=== PATIENT | female | born 1950 | race Caucasian/White ===

== ENCOUNTER 2023-10-10 23:39 | Emergency (ER) | payer MEDICARE, SELFPAY ==
[2023-10-10 23:55] VITALS: BP 187/100; PULSE 72; RESP 20; TEMP 36.3; O2SAT 99; BMI 29.6
[2023-10-11] VITALS (23 sets, daily range): BP systolic 152–195; BP diastolic 78–100; PULSE 60–72; O2SAT 94–98
[2023-10-11 00:30] LABS: Troponin, Point-of-Care* 0.01 ng/ml (0.01-0.04)
--- NOTE | 2023-10-11 00:58 | ED.CHESTPAIN ---
HPI - Chest Pain General Time Seen by Provider: 00:58 Date Seen: 10/11/23 Chief Complaint: Hypertension Stated Complaint: High Blood pressure Time Seen by Provider: 10/11/23 00:58 Source: patient, RN notes reviewed and old records reviewed Mode of arrival: ambulatory Limitations: no limitations History of Present Illness HPI narrative: Madeleine is a very pleasant well-spoken 73-year-old female with history of hypertension, 4 way CABG 2014, stent placement in September of 2022 who comes to the emergency room for evaluation of elevated blood pressure and not feeling quite right. Patient notes that she awoke this morning and describes an odd or strange feeling. Her blood pressure was elevated at 179. She denies any pain or discomfort throughout the day but did have some nausea early this morning. She is a very active person and had been very busy over this past week as her granddaughter from [place]. She states that going up stairs is very common for her. She notes that today because she felt ?odd or strange she was trying to take it a little bit easy. However, she still had to 10 to her pets and did climb multiple stairs today. She had no chest pain or shortness of breath when climbing stairs. The activity did not make her feel any worse. Throughout the day her blood pressure dropped and was 120 systolic. For blood pressures she currently takes amlodipine. She is also on long-acting Imdur. She notes that her doctor had told her that she could discontinue this medication when she wanted to but she has not done so at this time. Patient last met with Cardiology in December 2022. Preceding that she did have an echocardiogram which she states was normal. This evening patient felt of strange pressure in the left side of her neck that she describes as stiffness. This was intermittent and not pulsating in nature. She notes that it did happen here when she arrived but had has now since dissipated. She also experienced approximately 5 minutes of sweating on her forehead this evening. Oddly this was also occurrence on Monday night October 09. [place] to [place]. She notes that her angina type symptoms in the past have been shortness of breath and weakness without chest pain. Madeleine does not smoke, drink coffee or smoke. Her is present and he is very loving and supportive. Patient has no problems at this time and denies headache, visual changes, recent cough cold congestion, abdominal pain, nausea vomiting. She does note that she feels somewhat constipated as she has not had a lot of water today. Denies dysuria hematuria or any swelling in her ankles. Related Data Home Medications Medication Instructions Recorded Confirmed amlodipine 5 mg tablet mg PO 10/11/23 clonazepam 0.5 mg tablet mg PO 10/11/23 clopidogrel 75 mg tablet mg PO 10/11/23 ezetimibe 10 mg tablet mg PO 10/11/23 gabapentin 300 mg capsule mg PO 10/11/23 isosorbide mononitrate 30 mg mg PO 10/11/23 tablet,extended release 24 hr nitroglycerin 0.4 mg sublingual mg sublingual 10/11/23 tablet rosuvastatin 40 mg tablet mg PO 10/11/23 Allergies Allergy/AdvReac Type Severity Reaction Status Date / Time lisinopril AdvReac Verified 10/11/23 00:01 Review of Systems Status of ROS Reports: 10 or more systems reviewed and unremarkable except as noted in History and below Const Denies: fever or chills Eyes Denies: change in vision or blurry vision ENMT Reports: neck pain (Described as a pressure on the left.); Denies: difficulty swallowing, ear pain or nasal congestion Cardio Denies: chest pain, palpitations, edema, swelling of feet/ankles or shortness of breath with exertion Resp Denies: shortness of breath, cough or wheezing GI Denies: abdominal pain, heartburn or difficulty swallowing Reports: urinary frequency; Denies: painful urination or urinary urgency Musculo Reports: neck pain (Described as a pressure on the left.); Denies: back pain or extremity pain Neuro Denies: headache or confusion Allergy/Immuno Denies: wheezing [facility] Social History Smoking Status: Never smoker Do you use any of these nicotine containing products: None How often do you have a drink containing alcohol: never How often do you have six or more drinks on one occasion: Never AUDIT-C Alcohol total score: 0 Non-prescribed substance use: denies use Exam Narrative Exam Narrative: Alert and oriented. Very well-spoken woman in no acute distress. EOM is full. Face symmetrical. Speech is normal and articulate. Nontoxic in appearance Heart with a regular rate and rhythm. I do not auscultate additional heart sounds. Lungs show crackles in the bases left greater than right. Abdomen is soft nontender. Lower extremities with no evidence of edema. Moving all extremities without difficulty. Const Vital Signs, click to edit/add: Vital Signs - 24 hr 10/10/23 23:55 Temperature 97.3 F L Pulse Rate [Right Pulse Oximeter] 72 Respiratory Rate 20 Blood Pressure [Right Upper Arm] 187/100 H Pulse Oximetry 99 Oxygen Delivery Method Room Air Documenting provider has reviewed patient's vital signs: yes Course Course ED Course: Differential diagnosis includes but is not limited to acute coronary event, hypertension, GERD, electrolyte imbalance, congestive heart failure, early viral infection. At this time will order proBNP based on history of hypertension as well as lung findings, comprehensive panel, magnesium, CBC, troponin, EKG. I have told Madeleine that we will do 2 sets of cardiac enzymes and EKGs while she is here. Chest x-ray pending and patient will be placed on alarm security or surveillance monitor. Reevaluation(s) Reevaluation #1: Using [employer], I am able to see that patient has a history of restrictive lung disease. However lungs were clear on September of 2023 with primary MD. I can see that there is an EKG in the system but I am unable to view it at this time. Vital Signs Vital signs: Initial Vital Signs Temperature 97.3 F L 10/10/23 23:55 Temperature Source Temporal Artery Scan 10/10/23 23:55 Pulse Rate 72 10/10/23 23:55 Pulse Rhythm Regular 10/10/23 23:55 Respiratory Rate 20 10/10/23 23:55 Blood Pressure 187/100 H 10/10/23 23:55 Blood Pressure Mean 129 H 10/10/23 23:55 Blood Pressure Position Sitting 10/10/23 23:55 Pulse Oximetry 99 10/10/23 23:55 Oxygen Delivery Method Room Air 10/10/23 23:55 Vital Signs Temperature 97.3 F L 10/10/23 23:55 Pulse Rate 72 10/10/23 23:55 Respiratory Rate 20 10/10/23 23:55 Blood Pressure 187/100 H 10/10/23 23:55 Pulse Oximetry 99 10/10/23 23:55 Oxygen Delivery Method Room Air 10/10/23 23:55 Temperature 97.3 F L 10/10/23 23:55 Pulse Rate 72 10/10/23 23:55 Respiratory Rate 20 10/10/23 23:55 Blood Pressure 187/100 H 10/10/23 23:55 Pulse Oximetry 99 10/10/23 23:55 Oxygen Delivery Method Room Air 10/10/23 23:55 Medications Administered Medications: Generic Name Dose Route Start Last Admin Trade Name Freq PRN Reason Stop Dose Admin Furosemide 40 mg 10/11/23 02:17 10/11/23 02:39 Furosemide 10 Mg/Ml Inj IVP 10/11/23 02:18 40 mg ONCE ONE Administration MDM - Chest Pain MDM Narrative Medical decision making narrative: 1. New onset congestive heart failure- mild. Patient has new crackles in lung bases compared to documentation of previous exams. She has enlarged cardiac silhouette on chest x-ray. Her proBNP is elevated at 550 but this is in the indeterminate range. However, given reassuring laboratory values, new crackles I do think that this is likely some fluid retention. Patient has a slightly elevated TSH. I do not know if this is playing into any fluid retention. There is no evidence of lower extremity edema. Patient has been treated with Lasix 40 mg IV. 2. Hypertension -blood pressure has come down nicely most recently 150 systolic without any interventions. Patient has not had any other symptoms with the exception of intermittent left neck pressure and diaphoresis this evening. No such symptoms in the ED at this time. 3. Altered physical feeling-patient describes some mild nausea and feeling ?odd? this morning. Nausea resolved. Throughout the day quite active and this did not make her feel worse. No reports of neurological issues or symptoms of end-organ damage. D-dimer is negative and patient denies any pain radiating to back or numbness or tingling of the legs. Pulses symmetrical. 4. History of coronary artery disease-CABG for way 2014 followed by stent placement in September of 2023. Initial troponin negative. EKG reassuring although I was unable to compare to previous. Second EKG and troponin currently pending. 5. Disposition-plan at this time is to allow patient at least 2 episodes of urinating. Hopefully this will bring blood pressure down. Patient will then be discharged home with instructions to follow-up with primary MD or Cardiology for scheduling of echocardiogram. Seek medical attention for recurrence of symptoms. Addendum: Patient has now urinated 3 times. She has no further symptoms. Her blood pressure continues to be elevated at 160 systolic. For will use Lasix 20 mg daily for her. Recommend discontinuing if she gets lightheaded or blood pressure goes below 100 systolic. At this time patient feels safe going home and will be discharged. Medical Records Data Attestation: I reviewed the patient's medical records. Medical records narrative: EMS care Lab Data Attestation: I reviewed the patient's lab results. Labs: Lab Results 10/11/23 10/11/23 10/11/23 Range/Units 00:15 00:20 01:20 WBC 7.00 (4.50-11.00) K/uL RBC 5.67 H (4.00-5.20) m/uL Hgb 14.7 (12.0-16.0) gm/dL Hct 47.4 (33.0-51.0) % MCV 84 (80-100) fL MCH 26 (26-34) pg MCHC 31 L (32-36) gm/dL RDW Coeff of Viviana 13.8 (11.5-15.5) % Plt Count 178 (140-440) K/uL Neut % (Auto) 69.7 (42.0-72.0) % Lymph % (Auto) 22.3 (20-44) % Appling % (Auto) 6.7 (0.0-11.0) % Eos % (Auto) 0.7 (0.0-7.0) % Baso % (Auto) 0.3 (0.0-3.0) % Neut # (Auto) 4.88 (1.7-7.0) K/uL Lymph # (Auto) 1.56 (0.90-2.90) K/uL Appling # (Auto) 0.50 (0.00-0.90) K/UL Eos # (Auto) 0.05 (0.00-0.50) K/uL Baso # (Auto) 0.02 (0.00-0.30) K/uL Abs Immat Gran (auto) 0.02 (0.00-0.30) K/uL Imm/Tot Granulo (auto) 0.3 % D-Dimer Quant (PE/DVT) < 0.27 (0.00-0.50) ug/ml Sodium 142 (135-149) mmol/L Potassium 3.9 (3.6-5.1) mmol/L Chloride 108 (96-114) mmol/L Carbon Dioxide 22 (20-32) mmol/L Anion Gap 12 (7-15) mEq/L BUN 26 (7-30) mg/dL Creatinine 0.9 (0.5-1.5) mg/dL Estimated Creat Clear 40.21 Estimated GFR 67 ml/min Glucose 127 H (60-115) mg/dL Calcium 10.0 (8.4-10.6) mg/dL Magnesium 2.4 (1.5-2.6) mg/dL Total Bilirubin 0.5 (0.1-1.5) mg/dL AST 34 (12-35) U/L ALT 24 (4-35) U/L Alkaline Phosphatase 66 (40-150) U/L NT-Pro-B Natriuret Pep 526 pg/mL Total Protein 7.7 (6.0-8.3) g/dL Albumin 4.9 (3.3-5.0) g/dL 25-OH Vitamin D Total 47 (30-80) ng/mL TSH 7.650 H (0.270-4.200) uIU/mL Free T4 0.93 (0.70-1.85) ng/dL SARS-CoV-2 (PCR) Negative SARS-CoV-2 (Negative) Influenza Type A (PCR) Negative PCR FLU A (Negative) Influenza Type B (PCR) Negative PCR FLU B (Negative) RSV (PCR) Negative PCR RSV (Negative) Lab Acknowledgement POC Troponin I 0.01 (0.01-0.04) ng/ml 10/11/23 10/11/23 Range/Units 01:56 02:16 WBC (4.50-11.00) K/uL RBC (4.00-5.20) m/uL Hgb (12.0-16.0) gm/dL Hct (33.0-51.0) % MCV (80-100) fL MCH (26-34) pg MCHC (32-36) gm/dL RDW Coeff of Viviana (11.5-15.5) % Plt Count (140-440) K/uL Neut % (Auto) (42.0-72.0) % Lymph % (Auto) (20-44) % Appling % (Auto) (0.0-11.0) % Eos % (Auto) (0.0-7.0) % Baso % (Auto) (0.0-3.0) % Neut # (Auto) (1.7-7.0) K/uL Lymph # (Auto) (0.90-2.90) K/uL App[place] # (Auto) (0.00-0.90) K/UL Eos # (Auto) (0.00-0.50) K/uL Baso # (Auto) (0.00-0.30) K/uL Abs Immat Gran (auto) (0.00-0.30) K/uL Imm/Tot Granulo (auto) % D-Dimer Quant (PE/DVT) (0.00-0.50) ug/ml Sodium (135-149) mmol/L Potassium (3.6-5.1) mmol/L Chloride (96-114) mmol/L Carbon Dioxide (20-32) mmol/L Anion Gap (7-15) mEq/L BUN (7-30) mg/dL Creatinine (0.5-1.5) mg/dL Estimated Creat Clear Estimated GFR ml/min Glucose (60-115) mg/dL Calcium (8.4-10.6) mg/dL Magnesium (1.5-2.6) mg/dL Total Bilirubin (0.1-1.5) mg/dL AST (12-35) U/L ALT (4-35) U/L Alkaline Phosphatase (40-150) U/L NT-Pro-B Natriuret Pep pg/mL Total Protein (6.0-8.3) g/dL Albumin (3.3-5.0) g/dL 25-OH Vitamin D Total (30-80) ng/mL TSH (0.270-4.200) uIU/mL Free T4 (0.70-1.85) ng/dL SARS-CoV-2 (PCR) (Negative) Influenza Type A (PCR) (Negative) Influenza Type B (PCR) (Negative) RSV (PCR) (Negative) Lab Acknowledgement Test Added POC Troponin I 0.01 (0.01-0.04) ng/ml Imaging Data Chest x-ray: Attestation: I have reviewed the pertinent imaging results. My impression: Increased lung markings. No obvious infiltrates. Radiologist's impression: Cardiovascular and mediastinum: Mildly enlarged cardiac silhouette, possibly accentuated by portable technique. Tortuous aorta. Median sternotomy. Lungs and pleural spaces: Lungs are clear. No sign of infiltrate or mass. No sign of pleural effusion. No pneumothorax. Bones and soft tissues: No significant findings. IMPRESSION: 1. Mildly enlarged cardiac silhouette, possibly accentuated by portable technique. 2. No consolidation. ECG Data Attestation: I personally reviewed and interpreted this ECG as follows: ECG interpretation date: 10/11/23 Interpretation: EKG by my read shows sinus rhythm at a rate of 74. Evidence of a previous inferior infarct with Q-waves in 3 and AVF. I do not note any acute ST or T-wave changes. Second EKG by my read shows sinus rhythm at a rate of 67. Compared to previous no new changes. Discharge Plan Discharge Clinical Impression: New onset of congestive heart failure, Hypertension Patient Disposition: Home, Self-Care Additional Instructions: 1. New onset congestive heart failure-I believe this to be very mild and this will need to be confirmed with further testing. I suggest following up with Cardiology or your primary MD for a repeat echocardiogram. Your primary MD may wish to continue on an additional blood pressure medication. Tonight we used a medicine called Lasix or furosemide which is a diuretic. 2. Elevated TSH-this information should be be shared with your primary MD. your TSH was 7.65. Normal range is 0.270-4.2 3. We did not find any evidence of a heart attack. Your electrolytes are normal. Please return to the emergency room should you experience ongoing problems, the onset of new symptoms. Prescriptions: No Action isosorbide mononitrate 30 mg tablet extended release 24 hr PO clonazepam 0.5 mg tablet PO clopidogrel 75 mg tablet PO amlodipine 5 mg tablet PO nitroglycerin 0.4 mg tablet, sublingual sublingual gabapentin 300 mg capsule PO ezetimibe 10 mg tablet PO rosuvastatin 40 mg tablet PO Follow Up/Referrals: Provider,Not a Local [Primary Care Provider] - Stand Alone Forms: [employer] Info Instructions
--- NOTE | 2023-10-11 01:17 | CRLHL7_ITS ---
For Patients: As a result of the Century Cures Act, medical imaging exams and procedure reports are released immediately into your electronic medical record. You may view this report before your referring provider. If you have questions, please contact your health care provider. INDICATION: Hypertension. TECHNIQUE: Chest 1 view. COMPARISON: None. FINDINGS: Cardiovascular and mediastinum: Mildly enlarged cardiac silhouette, possibly accentuated by portable technique. Tortuous aorta. Median sternotomy. Lungs and pleural spaces: Lungs are clear. No sign of infiltrate or mass. No sign of pleural effusion. No pneumothorax. Bones and soft tissues: No significant findings. IMPRESSION: 1. Mildly enlarged cardiac silhouette, possibly accentuated by portable technique. 2. No consolidation. Dictated by Quintin Whyte MD @ 10/11/2023 2:02:21 AM (Electronically Signed)
--- OUTSIDE RECORDS SUMMARY | 2023-10-11 01:31 | XMS_ITS | Referral Summary ---
Author Name Unknown Organization [facility] Address [address] [place] [address]. [place] [address] Care Team Providers Care Logistics And Planning Manager Name Role Phone Marcelina Devine MD Primary Care Provider + Johnnie Forbes MD Unavailable Johnnie Forbes MD Unavailable Encounters Date Type Department Care Team Description 08/21/[address] [facility] [address] [place] [address] Aleah Hall LPN 08/03/2023 Refill [facility] [address] [facility] [address] [place] [address] Johnine Forebs MD Refill Request (clopidogrel) from Last 3 Months Allergies Active Allergy Reactions Criticality Noted Date Comments Lisinopril Cough 10/06/2016 Medications Medication Sig Dispensed Refills Start Date End Date Status clonazePAM (KLONOPIN) 0.5 MG tablet Take 0.5 mg by mouth nightly as needed for anxiety 0 Active gabapentin (NEURONTIN) 300 MG capsule Take 300 mg by mouth daily as needed 0 Active albuterol (PROAIR HFA/PROVENTIL HFA/VENTOLIN HFA) 108 (90 Base) MCG/ACT inhaler Inhale 2 puffs into the lungs every 6 hours 0 Active rosuvastatin (CRESTOR) 40 MG tablet Take 1 tablet (40 mg) by mouth daily 90 tablet 3 09/13/2022 Active amLODIPine (NORVASC) 5 MG tablet Take 1 tablet (5 mg) by mouth daily 90 tablet 3 09/13/2022 Active ezetimibe (ZETIA) 10 MG tablet Take 1 tablet (10 mg) by mouth daily 90 tablet 3 05/05/2023 Active isosorbide mononitrate (IMDUR) 30 MG 24 hr tablet Take 0.5 tablets (15 mg) by mouth daily 45 tablet 3 05/05/2023 Active nitroGLYcerin (NITROSTAT) 0.[address] 1 tablet (0.4 mg) under the tongue every 5 minutes as needed for chest pain For chest pain place 1 tablet under the tongue every 5 minutes for 3 doses. If symptoms persist 5 minutes after 1st dose call 911. 3 tablet 3 05/05/2023 Active clopidogrel (PLAVIX) 75 MG tabletIndications:CAD (coronary artery disease) Take 1 tablet (75 mg) by mouth daily 90 tablet 2 08/03/2023 Active Active Problems Problem Noted Date Diagnosed Date Benign essential hypertension 09/13/2022 Unstable angina 08/26/2022 ACP (advance care planning) 07/20/2017 Cough 03/27/2015 Transient hyperglycemia post procedure 5 Anemia due to blood loss, acute 03/19/2015 Fluid overload 03/19/2015 S/P CABG x 4 03/10/2015 Syncope 01/21/2015 STEMI (ST elevation myocardial infarction) 11/28 Overview: inferior [place] Nov 2014 Coronary artery disease invo [place]ving [place] coronary artery of [place] heart without angina pectoris 11/28/2014 Overview: 03/10/2015 - CABG x4 with RUANO to LAD, rev SVG in Y configurations to 1st and 2nd diagonal and rev SVG to PDA 11/2014 - aspiration thrombectomy and THAI to RCA Ischemic cardiomyopathy 11/28/2014 NSVT (nonsustained ventricular tachycardia) Overview: 11-28-14 admit, runs of NSVT Dyslipidemia Social History Tobacco Use Types Packs/Day Years Used Date Smoking Tobacco: Never Smokeless Tobacco: Never Tobacco Cessation:Counseling Given: Not Answered Alcohol Use Standard Drinks/Week Comments No 0 (1 standard drink = 0.6 oz pur e alcohol) PHQ-2 Answer Date Recorded PHQ-2 Score 0 05/05/2023 Adolescent Education Answer Date Record ed Getting School Help Needed Not on file 07/07 Sex and Gender Information Value Date Recorded Sex Assigned at Not on file Gender Identity Not on file Sexual Orientation Not on file Last Filed Vital Signs Vital Sign Reading Time Taken Comments Blood Pressure 154/80 05/05/2023 1:30 PM CDT Pulse 69 05/05/2023 1:30 PM CDT Temperature 36.3 ??C (97.3 ??F) 08/30/2022 8:18 AM CS T Respiratory Rate 16 08/30/2022 8:18 AM [employer] Oxygen Saturation 98% 05/05/2023 1:30 PM CDT Inhaled Oxygen Concentration - - Weight 70.3 kg (155 lb) 05/05/2023 1:30 PM CDT Height 160 cm (5' 3) 05/05/2023 1:30 PM CDT Body Mass Index 27.46 05/05/2023 1:30 PM CDT Plan of Treatment Upcoming Encounters Date Type Department Care Team (Late st Contact Info) Description 11/14/2023 10:15 AM [employer] Lab [facility] [id number] [place] [address] [address] [place] [phone] 11/15/2023 10:30 AM [employer] Office Visit [address] [place] [id number] Johnnie Forbes MD [address] [place], [place] [id number] Medical Devices Implanted Type Area Medical Instructor Device Identifier Shelf Expiration Date Model / Serial / Lot Stent Resolute Jabari De 2.7fr [id number] Ronyx [id number] - [id number] Implanted:Qty: 1 on 08/29/2022 at [facility] Stent Drug Eluting (THAI) [employer] 05/24/2024 [id number] / / [id number] Imp Clip Horiz Multi Sm Yellow Implanted:Qty: 2 on 03/10/2015 by Yoshi Jimenez MD at [facility] [employer] [id number] / / Advance Directives For more information, please contact: [phone] Latest Code Status on File Code Status Date Activated Date Inactivated Comments Full Code 08/27/2022 5:41 PM 08/30/2022 4:13 PM All basic and advanced life-sustaining interventions are performed as appropriate Question Answer Comments Code status determined by: Discussion with patient/ legal decision maker Code Status History Code Status Date Activated Date Inactivated Comments Full Code 08/23/2022 7:46 PM 08/24/2022 11:16 PM Al l basic and advanced life-sustaining interventions are performed as appropriate Question Answer Comments Code status determined by: Discussion with patient/ legal decision maker Full Code 03/16/2015 8:13 AM 09/22/2018 8:09 PM Full Code 03/10/2015 3:45 PM 03/16/2015 8:13 AM Full Code 03/02/2015 8:54 PM 03/10/2015 3:45 PM Care Teams Logistics And Planning Manager Relationship Specialty Start Date End Date Marcelina Devine MD [facility] [address] [place] [address] PCP - General Family Practice 12/05/14 Johnnie Forbes MD [address] [place] [address] Cardiovascular Disease 03/02/23 Johnnie Forbes MD [address] [place] [address] Assigned Heart and Vascular Provider 05/06/23
--- OUTSIDE RECORDS SUMMARY | 2023-10-11 01:31 | XMS_ITS | Clinical Summary ---
Author Name Unknown Organization [place] Address [address] [place] [address]. [place] [address] Care Team Providers Care Strickler Attendant Name Role Phone Marcelina Devine MD Primary Care Provider + Johnnie Forbes MD Unavailable [phone] Johnnie Forbes MD Unavailable [phone] Allergies Active Allergy Reactions Criticality Noted Date [...] (ST elevation myocardial infarction) 11/28 Overview: inferior SC Nov 2014 Coronary artery disease invo [place]ving [place] coronary artery of [place] heart without angina pectoris 11/28/2014 Overview: 03/10/2015 - CABG x4 with RUANO to LAD, rev SVG in Y configurations to 1st and 2nd diagonal and rev SVG to PDA 11/2014 - aspiration thrombectomy and THAI to RCA Ischemic cardiomyopathy 11/28/2014 NSVT (nonsustained ventricular tachycardia) Overview: 11-28-14 admit, runs of NSVT Dyslipidemia Encounters Date Type Department Care Team Description 08/21/2023 MyC Medical Advice [facility] [address] [place] [address] [address] [place] [address] Aleah Hall LPN 08/03/2023 Refill [facility] [address] [facility] [address] [place] [address] Johnnie Forbes MD Refill Request (clopidogrel) from Last 3 Months Family History Medical History Relation Comments Cancer Brother from cancer , supposedly from agent [place] Heart Disease Mother possibly had hea rt problems? Relation Status Comments Brother Mother Social History Tobacco Use Types Packs/Day Years [...] T Respiratory Rate 16 08/30/2022 8:18 AM BIT SHARPENER OPERATOR Oxygen Saturation 98% 05/05/2023 1:30 PM CDT Inhaled Oxygen Concentration - - Weight 70.3 kg (155 lb) 05/05/2023 1:30 PM CDT Height 160 cm (5' 3) 05/05/2023 1:30 PM CDT Body Mass Index 27.46 05/05/2023 1:30 PM CDT Plan of Treatment Upcoming Encounters Date Type Department Care Team (Late st Contact Info) Description 11/14/2023 10:15 AM BIT SHARPENER OPERATOR Lab [address] [place] [phone] 11/15/2023 10:30 AM BIT SHARPENER OPERATOR Office Visit [address] [place] [address] Johnnie Forbes MD [address] [place] [address] Health Maintenance Due Date Last Done Comments ANNUAL REVIEW OF HM ORDERS 1948 CT COLONOGRAPHY 1948 DEXA 1948 FLEX SIG 1948 sDNA (Cologuard) 1948 COVID-19 Vaccine (#1) 1948 Pneumococcal Vaccine: 65+ Years (1 of 2 - PCV) 1954 COLONOSCOPY 1958 HEPATITIS C SCREENING 1966 DTAP/TDAP/TD IMMUNIZATION (1 - Tdap) 1973 ZOSTER IMMUNIZATION (1 of 2) 1998 RSV VACCINE ( & 60+) (1 - 1-dose 60+ series) 2008 FALL RISK ASSESSMENT 2013 COLORECTAL CANCER SCREENING 12/17/2015 FIT 12/17/2015 12/16/2014 MAMMO SCREENING 06/19/2021 06/19/2019 ADVANCE CARE PLANNING 07/20/2022 07/20/2017 MEDICARE ANNUAL WELLNESS VISIT 03/03/2023 03/03/2022, 08/13/2020 INFLUENZA VACCINE (#1) 2023 PHQ-2 (once per calendar year) 2023 05/05/2023 LIPID 06/19/2028 06/19/2023, 08/0 11/2022, 01/21/2015, Additional history exists HPV IMMUNIZATION Aged Out No longer e ligible based on patient's age to complete this topic IPV IMMUNIZATION Aged Out No longer e ligible based on patient's age to complete this topic MENINGITIS IMMUNIZATION Aged Out No l onger eligible based on patient's age to complete this topic RSV MONOCLONAL ANTIBODY Aged Out No l onger eligible based on patient's age to complete this topic Medical Devices Implanted Type Area Counselor Manager Device Identifier Shelf Expiration Date Model / Serial / Lot Stent Resolute Jabari De 2.7fr [id number] Ronyx [id number] - [id number] Implanted:Qty: 1 on 08/29/2022 at [facility] Stent Drug Eluting (THAI) [employer] 05/24/2024 [id number] / / [id number] Imp Clip Horiz Multi Sm Yellow Implanted:Qty: 2 on 03/10/2015 by Yoshi Jimenez MD at [facility] [employer] [id number] / / Advance Directives For more information, please contact: [phone] Latest Code Status on File Code Status [...] 8:54 PM 03/10/2015 3:45 PM Care Teams Strickler Attendant Relationship Specialty Start Date End Date Marcelina Devine MD [facility] [id number] [place] [address] PCP - General Family Practice 12/05/14 Johnnie Forbes MD [address] [place] [address] Cardiovascular Disease 03/02/23 Johnnie Forbes MD [address] [place] [address] Assigned Heart and Vascular Provider 05/06/23
--- OUTSIDE RECORDS SUMMARY | 2023-10-11 01:32 | XMS_ITS | Encounter Summary ---
Author Name Unknown Organization [place] Address [address] [place] [address]. [place] [address] Care Team Providers Care Community Health Outreach Worker Name Role Phone Marcelina Devine MD Primary Care Provider + Johnnie Forbes MD Unavailable [phone] Johnnie Forbes MD Unavailable Reason for Visit * Reason Onset Date Comments Refill Request 08/03/2023 clopidogrel Encounter Details Date Type Department Care Team (Late st Contact Info) Description 08/03/2023 Refill [facility] Heart [address] [place] [address] Johnnie Forbes MD [address] [facility] [address] [place] [address] Refill Request (clopidogrel) Social History Tobacco Use Types Packs/Day Years Used Date Smoking Tobacco: Never Smokeless Tobacco: Never Alcohol Use Standard Drinks/Week Comments No 0 (1 standard drink = 0.6 oz pur e alcohol) PHQ-2 Answer Date Recorded PHQ-2 Score 0 05/05/2023 Adolescent Education Answer Date Record ed Getting School Help Needed Not on file 07/07 Sex and Gender Information Value Date Recorded Sex Assigned at Not on file Gender Identity Not on file Sexual Orientation Not on file documented as of this encounter Miscellaneous Notes * Telephone Encounter - Zuly Vasquez, RN - 08/03/2023 3:20 PM CDT [facility] Cardiology Refill Guideline reviewed. Medication meets criteria for refill. documented in this encounter Plan of Treatment Upcoming Encounters Date Type Department Care Team (Late st Contact Info) Description 11/14/2023 10:15 AM SECURITY TECH Lab [facility] [address] [facility] [address] [place] [address] 11/15/2023 10:30 AM SECURITY TECH Office Visit [facility] [address] [place] [address] [address] [place] [address] Johnnie Forbes MD [address] [place] [id number] documented as of this encounter Visit Diagnoses Diagnosis CAD (coronary artery disease)- Primary Coronary atherosclerosis of unspecified type of vessel, deering or graft documented in this encounter Care Teams Community Health Outreach Worker Relationship Specialty Start Date End Date Marcelina Devine MD [address] [address] PCP - General Family Practice 12/05/14 Johnnie Forbes MD [address] [place] [id number] Cardiovascular Disease 03/02/23 Johnnie Forbes MD [address] [place] [id number] Assigned Heart and Vascular Provider 05/06/23 documented as of this encounter
--- OUTSIDE RECORDS SUMMARY | 2023-10-11 01:32 | XMS_ITS | Encounter Summary ---
Author Name Unknown Organization [place] Address [address] [place] [address]. [place] [address] Care Team Providers Care Tong Setter Name Role Phone Marcelina Devine MD Primary Care Provider + Johnnie Forbes MD Unavailable [phone] Johnnie Forbes MD Unavailable [phone] Reason for Visit * Reason Onset Date Comments Medication Question 07/07/2023 Please advis e - Patient called asking if she needs to hold her Plavix for a Dental appointment next week 07-20-23, - Removal of a old crown, filling, and having a new crown placed . Encounter Details Date Type Department Care Team (Late st Contact Info) Description 07/07/2023 Telephone [facility] Heart [address] [address] Linda Coreas, rn dialysis Question (Please advise - /Patient called asking if she needs to hold her Plavix for a Dental appointment next week 07-20-23, - Removal of a old crown, filling, and having a new crown placed . ////) Social History Tobacco Use Types Packs/Day Years [...] on file Sexual Orientation Not on file COVID-19 Exposure Response Date Recorded In the last 10 days, have yo u been in contact with someone who was confirmed or suspected to have Coronavirus/COVID-19? No / Unsure 06/19/2023 10:45 AM CDT documented as of this encounter Miscellaneous Notes * Telephone Encounter - Sheeba Jimenez RN - 07/10/2023 8:34 AM CDT Spoke with patient to review Dr. Forbes's reply. She is not aware of any other procedures that would be bloody so will follow the plan to continue plavix. * Telephone Encounter - Linda Coreas RN - 07/07/2023 4:[address] Forbes message reply 07-07-23 She should not need to hold. She can double check with her dentist. But I think it should not be a problem * Telephone Encounter - Linda Coreas RN - 07/07/2023 1:52 PM CDT Patient called asking if she needs to hold her Plavix for a Dental appointment next week 07-20-23, - Removal of a old crown, filling, and having a new crown placed . Patient will also call dentist for plavix recommendations Hold - for how long or not hold? Last heart cath 09-05-22 One vessel obstructive coronary artery disease 75% stenosis of SVG to rPDA graft IVUS guided PCI of SVG to rPDA graft with DESx1 (Resolute Jabari 4.00x38 mm) Emblolic protection with use of Filter wire EZ Hemostasis of RRA with TR band Plan Follow bedrest per protocol Continued medical management and lifestyle modifications for cardiovascular risk factor optimizations. Arterial sheath removed from radial artery with TR band placement. Cardiac rehabilitation. Return to the primary inpatient team for further evaluation and managmenet Last Dr. Forbes OV 05-05-23 Assessment and plan Madeleine appears to be doing well from a cardiac standpoint without clinical evidence of ischemia. At this time I told her she can try weaning her Imdur decreasing to 15 mg daily for2 weeks. After which she can try eliminating it altogether. She is more than 6 months out and with her increased ecchymoses I will discontinue aspirin and continue Plavix only. I will plan on seeing her back in about 6 months. We talked about the fact that I will probably continue with lifelong clopidogrel as opposed to aspirin given the Mcgregor meta-analysis. I will also recheck her echocardiogram at that time. documented in this encounter Plan of Treatment Upcoming Encounters Date Type Department Care Team (Late st Contact Info) Description 11/14/2023 10:15 AM DEPUTY FIRE MARSHAL Lab [facility] [address] [place] [address] [address] [place] [address] 11/15/2023 10:30 AM DEPUTY FIRE MARSHAL Office Visit [facility] [address] [place] [address] [address] [place] [address] Johnnie Forbes MD [address] [place] [id number] documented as of this encounter Visit Diagnoses Not on filedocumented in this encounter Care Teams Tong Setter Relationship Specialty Start Date End Date Marcelina Devine MD [facility] [address] [place] [address] PCP - General Family Practice 12/05/14 Johnnie Forbes MD [address] [place] [id number] Cardiovascular Disease 03/02/23 Johnnie Forbes MD [address] [place] [id number] Assigned Heart and Vascular Provider 05/06/23 documented as of this encounter
--- OUTSIDE RECORDS SUMMARY | 2023-10-11 01:32 | XMS_ITS | Encounter Summary ---
Author Name Unknown Organization [place] Address [address] [place] [address]. [place] [address] Care Team Providers Care Securities Dealer Name Role Phone Marcelina Devine MD Primary Care Provider + Dianne Coello APRN WASTEWATER PLANT OPERATOR Unavailable [phone] Johnnie Forbes MD Unavailable [phone] Johnnie Forbes MD Unavailable [phone] Encounter Details Date Type Department Care Team (Late st Contact Info) Description 08/14/2021 Documentation Only INTERFACED REPORT Unknown, Provider Social History Tobacco Use Types Packs/Day Years Used Date Smoking Tobacco: Never Smokeless Tobacco: Never Alcohol Use Standard Drinks/Week Comments No 0 (1 standard drink = 0.6 oz pur e alcohol) Sex and Gender Information Value Date Recorded Sex Assigned at Not on file Gender Identity Not on file Sexual Orientation Not on file COVID-19 Exposure Response Date Recorded In the last month, have you been in contact with someone who was confirmed or suspected to have Coronavirus / COVID-19? No / Unsure 08/14/2021 2:27 PM TRANSIT SURVEY WORKER documented as of this encounter Plan of Treatment Upcoming Encounters Date Type Department Care Team (Late Contact Info) Description 11/14/2023 10:15 AM TRANSIT SURVEY WORKER Lab [address] [place] [address] 11/15/2023 10:30 AM TRANSIT SURVEY WORKER Office Visit [address] [place] [address] Johnnie Forbes MD [address] [place] [id number] documented as of this encounter Visit Diagnoses Not on filedocumented in this encounter Additional Health Concerns Infection Onset Date Last Indicated Resolved Time COVID-19 08/26/2022 08/26/2022 09/16/2022 11:3 9 PM TRANSIT SURVEY WORKER documented as of this encounter Care Teams Securities Dealer Relationship Specialty Start Date End Date Marcelina Devine MD [facility] [address] [place] [address] PCP - General Family Practice 12/05/14 Dianne Coello APRN WASTEWATER PLANT OPERATOR [address] [place] [address] Assigned Heart and Vascular Provider 09/17/22 05/05/23 Johnnie Forbes MD [address] [place] [id number] Cardiovascular Disease 03/02/23 Johnnie Forbes MD [address] [place] [id number] Assigned Heart and Vascular Provider 05/06/23 documented as of this encounter
--- OUTSIDE RECORDS SUMMARY | 2023-10-11 01:32 | XMS_ITS | Encounter Summary ---
Author Name Unknown Organization [place] Address [address] [place] [address]. [place] [address] Care Team Providers Care Stenographer Secretary Name Role Phone Marcelina Devine MD Primary Care Provider + Johnnie Forbes MD Unavailable [phone] Johnnie Forbes MD Unavailable [phone] Encounter Details Date Type Department Care Team (Late st Contact Info) Description 06/20/2023 MyC Medical Advice [address] [address] Sheeba Jimenez, RN Social History Tobacco Use Types Packs/Day Years Used Date Smoking Tobacco: Never Smokeless Tobacco: Never Alcohol Use Standard Drinks/Week Comments No 0 (1 standard drink = 0.6 oz pur e alcohol) PHQ-2 Answer Date Recorded PHQ-2 Score 0 05/05/2023 Sex and Gender Information Value Date Recorded Sex Assigned at Not on file Gender Identity Not on file Sexual Orientation Not on file COVID-19 Exposure Response Date Recorded In the last 10 days, have yo u been in contact with someone who was confirmed or suspected to have Coronavirus/COVID-19? No / Unsure 06/19/2023 10:45 AM CDT documented as of this encounter Plan of Treatment Upcoming Encounters Date Type Department Care Team (Late Contact Info) Description 11/14/2023 10:15 AM CORONER FORENSIC TECHNICIAN Lab [facility] [address] [facility] [address] [place] [address] 11/15/2023 10:30 AM CORONER FORENSIC TECHNICIAN Office Visit [facility] [place] [address] [facility] [address] [place] [address] Johnnie Forbes MD [address] [place] [id number] documented as of this encounter Visit Diagnoses Not on filedocumented in this encounter Care Teams Stenographer Secretary Relationship Specialty Start Date End Date Marcelina Devine MD [facility] [address] [place] [address] PCP - General Family Practice 12/05/14 Johnnie Forbes MD [address] [place] [id number] Cardiovascular Disease 03/02/23 Johnnie Forbes MD [address] [place] [id number] Assigned Heart and Vascular Provider 05/06/23 documented as of this encounter
--- OUTSIDE RECORDS SUMMARY | 2023-10-11 01:32 | XMS_ITS | Encounter Summary ---
Author Name Unknown Organization [place] Address [facility] [place] [address] Care Team Providers Care Pole Peeler Name Role Phone Marcelina Devine MD Primary Care Provider + Dianne Coello APRN SECOND WORKER Unavailable [phone] Reason for Visit * Reason Onset Date Comments Hypertension 12/02/2022 [facility] Encounter Details Date Type Department Care Team (Late st Contact Info) Description 12/02/2022 Telephone [facility] Heart [facility] [address] [place] [address] [address] [place] [address] Johnnie Gasca Hypertension ([facility]) Social History Tobacco Use Types Packs/Day Years [...] encounter Miscellaneous Notes * Telephone Encounter - Johnnie Gasca - 12/02/2022 11:36 AM CST [facility] Measures Blood Pressure guideline reviewed. Patients recent blood pressure is outside of guideline parameters. Called pt to review asking patient to check their blood pressure using a home blood pressure cuff or by going to a [facility]. Patient instructed to then call [phone] ([place]) and leave a message with their name, date of , and blood pressure reading that was completed within the last 24 hours and where it was completed. Will await call back for furtherreview. Patient returned call and left voicemail message with update blood pressure reading. Last Blood Pressure: 148/80 Last Heart Rate: 85 Date: 09/13/22 Location: [facility] Cardiology Today's Blood Pressure: 119/76 Today's Heart Rate: 70 Location: Home BP Patient reported blood pressure updated in [facility]. Blood pressure falls within [place] Community Measures guidelines. Patient will follow up as previously advised. L POST INSTALLER SUPERVISOR documented in this encounter Plan of Treatment Upcoming Encounters Date Type Department Care Team (Late st Contact Info) Description 11/14/2023 10:15 AM STEEL POST INSTALLER SUPERVISOR Lab [address] [place] [address] 11/15/2023 10:30 AM STEEL POST INSTALLER SUPERVISOR Office Visit [address] [place] [address] Johnnie Forbes MD [address] [place] [address] documented as of this encounter Visit Diagnoses Not on filedocumented in this encounter Care Teams Pole Peeler Relationship Specialty Start Date End Date Marcelina Devine MD [facility] [id number] [place] [address] PCP - General Family Practice 12/05/14 Dianne Coello APRN SECOND WORKER [address] [place] [address] Assigned Heart and Vascular Provider 09/17/22 05/05/23 documented as of this encounter
--- OUTSIDE RECORDS SUMMARY | 2023-10-11 01:32 | XMS_ITS ---
Author Name Unknown Organization Unknown Patient Care team information Name Category Status Period Participants - - Proposed period not known -
--- OUTSIDE RECORDS SUMMARY | 2023-10-11 01:32 | XMS_ITS | Encounter Summary ---
Author Name Unknown Organization [facility] Address [address] [place] [address]. [place] [address] Care Team Providers Care Hand Button Splitter Name Role Phone Marcelina Devine MD Primary Care Provider + Johnnie Forbes MD Unavailable [phone] Johnnie Forbes MD Unavailable [phone] Encounter Details Date Type Department Care Team (Latest Contact Info) Description 06/19/2023 Travel Social History Tobacco Use Types Packs/Day Years [...] st Contact Info) Description 11/14/2023 10:15 AM METAL SANDER Lab [address] [place] [address] 11/15/2023 10:30 AM METAL SANDER Office Visit [address] [place] [address] Johnnie Forbes MD [address] [place] [address] documented as of this encounter Visit Diagnoses Not on filedocumented in this encounter Care Teams Hand Button Splitter Relationship Specialty Start Date End Date Marcelina Devine MD [facility] [address] [place] [address] PCP - General Family Practice 12/05/14 Johnnie Forbes MD [address] [place] [address] Cardiovascular Disease 03/02/23 Johnnie Forbes MD [address] [place] [address] Assigned Heart and Vascular Provider 05/06/23 documented as of this encounter
--- OUTSIDE RECORDS SUMMARY | 2023-10-11 01:32 | XMS_ITS | Encounter Summary ---
Author Name Unknown Organization [place] Address [address] [place] [address]. [place] [address] Care Team Providers Care Manufacturing Engineer Name Role Phone Marcelina Devine MD Primary Care Provider + Johnnie Forbes MD Unavailable [phone] Johnnie Forbse MD Unavailable [phone] Encounter Details Date Type Department Care Team (Latest Contact Info) Description 05/26/2023 Travel Social History Tobacco Use Types Packs/Day [...] was confirmed or suspected to have Coronavirus/COVID-19? Unable to assess 05/26/2023 12:26 PM CDT documented as of this encounter Plan of Treatment Upcoming Encounters Date Type Department Care Team (Late st Contact Info) Description 11/14/2023 10:15 AM SEO SPECIALIST Lab [address] [place] [address] 11/15/2023 10:30 AM SEO SPECIALIST Office Visit [address] [place] [address] Johnnie Forbes MD [address] [place] [id number] documented as of this encounter Visit Diagnoses Not on filedocumented in this encounter Care Teams Manufacturing Engineer Relationship Specialty Start Date End Date Marcelina Devine MD [facility] [address] [place] [address] PCP - General Family Practice 12/05/14 Johnnie Forbes MD [address] [place] [address] Cardiovascular Disease 03/02/23 Johnnie Forbes MD [address] [place] [address] Assigned Heart and Vascular Provider 05/06/23 documented as of this encounter
--- OUTSIDE RECORDS SUMMARY | 2023-10-11 01:32 | XMS_ITS | Encounter Summary ---
Author Name Unknown Organization [place] Address [address] [place] [address]. [place] [address] Care Team Providers Care Cnc Wood Lathe Operator Name Role Phone Marcelina Devine MD Primary Care Provider + Dianne Coello APRN TANK RIVETER Unavailable [phone] Johnnie Forbes MD Unavailable [phone] Johnnie Forbes MD Unavailable [phone] Reason for Visit * Reason Comments Clinic Care Coordination - Post Hospital Encounter Details Date Type Department Care Team (Latest Contact Info) Description 08/26/[address] [address] Susan Matamoros, DEVAN Clinic Care Coordination - Post Hospital Social History Tobacco Use Types Packs/Day Years [...] suspected to have Coronavirus/COVID-19? No / Unsure 08/26/2022 9:31 AM WATCH GUARD GATE documented as of this encounter Plan of Treatment Upcoming Encounters Date Type Department Care Team (Late st Contact Info) Description 11/14/2023 10:15 AM WATCH GUARD GATE Lab [facility] [address] [facility] [address] [place] [address] 11/15/2023 10:30 AM WATCH GUARD GATE Office Visit [facility] [address] [facility] [address] [place] [address] Johnnie Forbes MD [address] [place] [id number] documented as of this encounter Visit Diagnoses Diagnosis Chest pain- Primary Chest pain, unspecified Coronary artery disease involving qagan tayagungin coronary artery with unstable angina pectoris (H) documented in this encounter Additional Health Concerns Infection Onset Date Last Indicated Resolved Time COVID-19 08/26/2022 08/26/2022 09/16/2022 11:3 9 PM WATCH GUARD GATE documented as of this encounter Care Teams Cnc Wood Lathe Operator Relationship Specialty Start Date End Date Marcelina Devine MD [facility] [address] [place] [address] PCP - General Family Practice 12/05/14 Dianne Coello APRN TANK RIVETER [address] [place] [id number] Assigned Heart and Vascular Provider 09/17/22 05/05/23 Johnnie Forbes MD [address] [place] [id number] Cardiovascular Disease 03/02/23 Johnnie Forbes MD [address] [place] [id number] Assigned Heart and Vascular Provider 05/06/23 documented as of this encounter
--- OUTSIDE RECORDS SUMMARY | 2023-10-11 01:32 | XMS_ITS | Continuity of Care Document ---
Author Name Unknown Organization [facility] Address [address] [address] [place] [address] Phone Care Team Providers Care Metal Drill Operator Name Role Phone Unavailable Unavailable Unavailable Allergies, Adverse Reactions, Alerts Substance Reaction Status Criticality No Known Allergies Active No Inform ation Medications Medication Instructions Dosage Effective Dates (start - stop) Status Comments amlodipine 5 mg tablet take 1 tablet by oral route every day 5 MG - Active Crestor 40 mg tablet take 1 tablet by or al route every day 40 MG - Active Procedures Procedure Date Colonoscopy Flex; W/bx 1/mx Level Iv-surg Path Gross/micro 20 Colorectal Ca Screen Hi Risk I 20 Ugi Endo; W/bx 1/mx Level Iv-surg Path Gross/micro 19 Colonoscopy Flex; W/remov Les- 17 Level Iv-surg Path Gross/micro 17 Colonoscopy Flex; W/remov Les- 17 Level Iv-surg Path Gross/micro 17 Advance Directives Directive Yes / No Effective Date File Name No Information Encounters Encounter Description Practice Location Reason(s) For Visit Diagnoses Date Provider Providers Copied on Encounter [facility], [address] [address], [place], [id number], tel:[phone] [facility] No Information 0 No Information Referring Provider: Hima PETERS, [address] [facility] [address], [place], [address] . tel:[phone] [facility], [address] [address], [place], [id number], [place] tel:[phone] [facility] Colorectal polypsDivertic ulosis of colon without diverticulitis Hemorrhoids, internalEncoun ter for screening for malignant neoplasm of colonBenign neoplasm of sigmoid colonBenign neoplasm of ascending colonPersonal history of colonic polyps 0- 0 Wyatt Mccain. [address], [id number], [place]. [phone] Marcelina Devine MD. tel:[phone] erring Provider: Referral Self, USE FOR SELF REFERRALS. [facility], [address] [address], [place], [id number], [place] tel:[phone] [facility] Colon cancer screeningScree guadalupe ColonoscopyDvr tclos of lg int w/o perforation or abscess w/o bleedingPerson al history of colonic polypsFamily history of malignant neoplasm of digestive organsEncounte r for screening for malignant neoplasm of colon 0 Franko Sotelo. [address], [id number], [place]. tel:[phone] Marcelina Devine MD. tel:[phone] erring Provider: Referral Self, USE FOR SELF REFERRALS. [facility], [address] [address], [place], [id number], [place] tel:[phone] [facility] Gastric ulcer without hemorrhage or perforation, unspecified chronicityEros steph gastropathyGas tric ulcer, unsp as acute or chronic, w/o hemor or perfOther diseases of stomach and duodenum 9 Tomas Caldwell. [address], [id number], [place]. tel:[phone] Marcelina Devine MD. tel:[phone] erring Provider: Marcelina Devine MD R, [address] [place] [address], [address]. tel:[phone] [facility], [address] [address], [place], [id number], tel:[phone] [facility] Screening ColonoscopyPer guillaume history of colonic polypsBenign neoplasm of descending colon 7 Franko Sotelo. [address], [id number], . tel:[phone] Referring Provider: Referral Self, USE FOR SELF REFERRALS. [facility], [address] [address], [place], [id number], tel:[phone] [facility] Polyp of colon, unspecified part of colon, unspecified typeDiverticul osis large intestine w/o perforation or abscess w/o bleedingEncoun ter for screening for malignant neoplasm of colonBenign neoplasm of sigmoid colonBenign neoplasm of descending colonFamily history of malignant neoplasm of digestive organs Franko Sotelo. [address], [id number], [place]. tel:[phone] Referring Provider: Marcelina Dev[place] R, [address] [place], [address]. tel:[phone] Family History Family Member Type Diagnosis Age At Onset Brother Problem (finding) Alive and well Mother Problem (finding) Brother Problem (finding) Father Problem (finding) Son Problem (finding) Alive and well Daughter Problem (finding) Alive and well Sister Problem (finding) Alive and well Brother Problem (finding) cancer of colon 49 Mother Problem (finding) asthma Payers Payer name Insurance type Covered constitution party ID Authoriza tion(s) [employer] [place] [id number] Social History Type Description Quantity Date Captured Comments Sex Female Smoking Status No Information Chief Complaint And Reason For Visit No Information Reason For Referral Reason For Referral No Information Plan Of Treatment Date Type Action Status Referral Ordered: CT Colography Appointment date/timeframe: -today ordered History Of Present Illness Encounter Date Complaint History Of Prese nt Illness No Information Functional Status Date Functional Assessmen t No Information Instructions Date Instruction Additional Infor mation Diverticulosis/Diverticulitis Re lated to Colorectal polyps Colon Polyps Related to Color ectal polyps Hemorrhoids Related to Color ectal polyps Colon Cancer Prevention Related to Colon cancer screening Hemorrhoids Related to Colon cancer screening Diverticulosis/Diverticulitis Re lated to Colon cancer screening High Fiber Diet Related to Colon cancer screening Colon Cancer Prevention Related to Screening Colonoscopy Colon Polyps Related to Scree guadalupe Colonoscopy High Fiber Diet Related to Scree guadalupe Colonoscopy Hemorrhoids Related to Scree guadalupe Colonoscopy Diverticulosis/Diverticulitis Re lated to Screening Colonoscopy Colon Polyps Related to Polyp of colon, unspecified part of colon, unspecified type Diverticulosis/Diverticulitis Re lated to Polyp of colon, unspecified part of colon, unspecified type Hemorrhoids Related to Polyp of colon, unspecified part of colon, unspecified type Hemorrhoid Banding Related to Po lyp of colon, unspecified part of colon, unspecified type Colon Cancer Prevention Related to Polyp of colon, unspecified part of colon, unspecified type Assessments Type Assessment Date No Information Patient Care Teams Name Effective Dates (start - stop) Status Members No Information
--- OUTSIDE RECORDS SUMMARY | 2023-10-11 01:32 | XMS_ITS | Encounter Summary ---
Author Name Unknown Organization [place] Address [facility]0 [facility] [place] [address] Care Team Prov[address] Care [address] Attendant Name Role Phone Marcelina Devine MD Primary Care Provider + Dianne Coello APRN SANDING MACHINE OPERATOR OR TENDER Unavailable [phone] Johnnie Forbes MD Unavailable [phone] Encounter Details Date Type Department Care Team (Late Contact Info) Description 05/04/2023 11:00 AM CDT [facility] [address] [facility] [address] [place] [address] Johnnie Forbes MD [address] [facility] [address] [place] [address] Hyperlipidemia LDL goal <70 Social History Tobacco Use Types Packs/Day Years [...] suspected to have Coronavirus/COVID-19? No / Unsure 05/04/2023 10:58 AM CDT documented as of this encounter Plan of Treatment Upcoming Encounters Date Type Department Care Team (Late st Contact Info) Description 11/14/2023 10:15 AM DIABETES TERRITORY MANAGER Lab [facility] [address] [facility] [address] [place] [address] 11/15/2023 10:30 AM DIABETES TERRITORY MANAGER Office Visit [facility] [address] [facility] [address] [place] [address] Johnnie Forbes MD [address] [place] [address] documented as of this encounter Procedures Procedure Name Priority Date/Time Associated Diagnosis Comments LIPID PROFILE Routine 05/04/2023 11:09 AM CDT Hyperlipidemia LDL goal <70 ALT Routine 05/04/2023 11:09 AM CDT Hyperlipidemia LDL goal <70 documented in this encounter Results * ALT (05/04/2023 11:09 AM CDT) ALT 18 0 - 50 U/L 05/04/2023 11:42 AM CDT LABORATORY Comment:Reference intervals for this test were updated on 03/13/2023 to more accurately reflect our healthy population. There may be differences in the flagging of prior results with similar values performed with this method. Interpretation of those prior results can be made in the context of the updated reference intervals. Blood STRUCTURE OF LEFT UPPER LIMB / Unknown Venipuncture / Unknown 05/04/2023 11:09 AM CDT 05/04/2023 11:10 AM CDT Dianne Coello APRN SANDING MACHINE OPERATOR OR TENDER LAB - BLOOD ORD ERABLES [facility] [address] Lab (1st floor, no room number) [place] [address], [facility] [phone] * Lipid Profile (05/04/2023 11:09 AM CDT) Cholesterol 166 <200 mg/dL 05/04/2023 1:45 PM CDT [facility] Triglycerides 84 <150 mg/dL 05/04/2023 1:45 PM CDT [facility] Direct Measure HDL 58 >=50 mg/dL 2022 1:45 PM CDT [facility] LDL Cholesterol Calculated 91 <=100 mg/dL 05/04/2023 1:45 PM CDT [facility] Non HDL Cholesterol 108 <130 mg/dL 05/04/2023 1:45 PM CDT [facility] Blood STRUCTURE OF LEFT UPPER LIMB / Unknown Venipuncture / Unknown 05/04/2023 11:09 AM CDT 05/04/2023 11:10 AM CDT Narrative [facility] - 05/04/2023 1:45 PM CDT Cholesterol Desirable: ??<200 mg/dL Triglycerides Normal: ??Less than 150 mg/dL Borderline High: ??150-199 mg/dL High: ??200-499 mg/dL Very High: ??Greater than or equal to 500 mg/dL Direct Measure HDL Female: ??Greater than or equal to 50 mg/dL Male: ??Greater than or equal to 40 mg/dL LDL Cholesterol Desirable: ??<100mg/dL Above Desirable: ??100-129 mg/dL Borderline High: ??130-159 mg/dL High: ??160-189 mg/dL Very High: ??>= 190 mg/dL Non HDL Cholesterol Desirable: ??130 mg/dL Above Desirable: ??130-159 mg/dL Borderline High: ??160-189 mg/dL High: ??190-219 mg/dL Very High: ??Greater than or equal to 220 mg/dL Dianne Coello APRN SANDING MACHINE OPERATOR OR TENDER LAB - BLOOD ORD ERABLES [facility] [address] [facility], [address] [place] [address], [facility] [phone] documented in this encounter Visit Diagnoses Diagnosis Hyperlipidemia LDL goal <70 Other and unspecified hyperlipidemia documented in this encounter Care Teams Lane Attendant Relationship Specialty Start Date End Date Marcelina Devine MD [address] [place] [address] PCP - General Family Practice 12/05/14 Dianne Coello APRN CNP [address] [place] [address] [address] Assigned Heart and Vascular Provider 09/17/22 05/05/23 Johnnie Forbes MD [address] [place] [id number] Cardiovascular Disease 03/02/23 documented as of this encounter
--- OUTSIDE RECORDS SUMMARY | 2023-10-11 01:32 | XMS_ITS | Encounter Summary ---
Author Name Unknown Organization [place] Address [address] [place] [address]. [place] [address] Care Team Providers Care Technical Trainer Name Role Phone Marcelina Devine MD Primary Care Provider + Johnnie Forbes MD Unavailable [phone] Johnnie Forbes MD Unavailable [phone] Encounter Details Date Type Department Care Team (Late st Contact Info) Description 08/21/2023 MyC Medical Advice [address] [place] [address] Aleah Hall LPN Social History Tobacco Use Types Packs/Day Years [...] on file documented as of this encounter Plan of Treatment Upcoming Encounters Date Type Department Care Team (Late st Contact Info) Description 11/14/2023 10:15 AM COOLER WORKER Lab [facility] [address] [place] [address] [address] [place] [address] 11/15/2023 10:30 AM COOLER WORKER Office Visit [facility] [address] [facility] [address] [place] [address] Johnnie Forbes MD [address] [place] [id number] documented as of this encounter Visit Diagnoses Not on filedocumented in this encounter Care Teams Technical Trainer Relationship Specialty Start Date End Date Marcelina Devine MD [facility] [address] [place] [address] PCP - General Family Practice 12/05/14 Johnnie Forbes MD [address] [place] [address] Cardiovascular Disease 03/02/23 Johnnie Forbes MD [address] [place] [address] Assigned Heart and Vascular Provider 05/06/23 documented as of this encounter
--- OUTSIDE RECORDS SUMMARY | 2023-10-11 01:32 | XMS_ITS | Encounter Summary ---
Author Name Unknown Organization [place] Address [facility] [place] [address] Care Team Providers Care Stationary Steam Engineer Name Role Phone Marcelina Devine MD Primary Care Provider + Johnnie Forbes MD Unavailable [phone] Johnnie Forbes MD Unavailable Encounter Details Date Type Department Care Team (Late st Contact Info) Description 06/20/2023 Telephone [facility] [address] [place] [address] Sheeba Jimenez, RN Social History Tobacco [...] Telephone Encounter - Sheeba Jimenez RN - 06/20/2023 9:36 AM CDT Images from the original note were not included. Message from Dr. Forbes: Johnnie Forbes MD P [facility] Heart Team 2 FLP is excellent. Continue current meds Left a message on the house phone and spoke with patient's spouse. My chart message sent as follow up. Divya, Ms. Simmons, Dr. Forbes looked at your lab results. He said, FLP is excellent. Continue current meds. Thank you Team 2 R.N.s [phone] documented in this encounter Plan of Treatment Upcoming Encounters Date Type Department Care Team (Late st Contact Info) Description 11/14/2023 10:15 AM ANALYSIS EVALUATOR Lab [address] [address] 11/15/2023 10:30 AM ANALYSIS EVALUATOR Office Visit [address] [address] Johnnie Forbes MD [address] [place] [address] documented as of this encounter Visit Diagnoses Not on filedocumented in this encounter Care Teams Stationary Steam Engineer Relationship Specialty Start Date End Date Marcelina Devine MD [address] [address] PCP - General Family Practice 12/05/14 Johnnie Forbes MD [address] [place] [address] Cardiovascular Disease 03/02/23 Johnnie Forbes MD [address] [place] [address] Assigned Heart and Vascular Provider 05/06/23 documented as of this encounter
--- OUTSIDE RECORDS SUMMARY | 2023-10-11 01:32 | XMS_ITS | Encounter Summary ---
Author Name Unknown Organization [place] Address [address] [place] [address]. [place] [address] Care Team Providers Care Lead Javascript Engineer Name Role Phone Marcelina Devine MD Primary Care Provider + Dianne Coello APRN MANAGER LICENSING Unavailable [phone] Johnnie Forbes MD Unavailable [phone] Encounter Details Date Type Department Care Team (Latest Contact Info) Description 05/04/2023 Travel Social History Tobacco Use Types Packs/Day [...] st Contact Info) Description 11/14/2023 10:15 AM SMT OPERATOR Lab [address] [place] [address] 11/15/2023 10:30 AM SMT OPERATOR Office Visit [address] [place] [address] Johnnie Forbes MD [address] [place] [id number] documented as of this encounter Visit Diagnoses Not on filedocumented in this encounter Care Teams Lead Javascript Engineer Relationship Specialty Start Date End Date Marcelina Devine MD [facility] [address] [place] [address] PCP - General Family Practice 12/05/14 Dianne Coello APRN CNP [address] [place] [id number] Assigned Heart and Vascular Provider 09/17/22 05/05/23 Johnnie Forbes MD [address] [place] [address] Cardiovascular Disease 03/02/23 documented as of this encounter
--- OUTSIDE RECORDS SUMMARY | 2023-10-11 01:32 | XMS_ITS | Encounter Summary ---
Author Name Unknown Organization [facility] Address [address] [facility] [place] [address] Care Team Providers Care Dairy Frozen Manager Name Role Phone Macrelina Devine MD Primary Care Provider + Dianne Coello APRN [employer]OUTEMAN Unavailable [phone] Johnnie Forbes MD Unavailable [phone] Reason for Referral * Consultation (Routine: Next available opening) - Pending Review Specialty Diagnoses / Procedures Referred By Contac t Referred To Contact Cardiovascular Disease Diagnoses Coronary artery disease involving [place] coronary artery of [place] heart without angina pectoris Ischemic cardiomyopathy NSVT (nonsustained ventricular tachycardia) (H) Dyslipidemia Benign essential hypertension Johnnie Forbes MD [address] [facility] [address] [place] [address] Referral ID Status Reason Start Date Expiration Date V isits Requested Visits Authorized [id number] Pending Review 05/05/2023 05/04/2024 1 1 Question Answer Follow-up with: Self Scheduling Instructions: [employer] will call you to coordinate your care as prescribed by your provider. If you have concerns about scheduling, please call [phone]. Comments Are You a Human [facility] will call you to coordinate your care as prescribed by your provider. If you have concerns about scheduling, please call [phone]. Reason for Visit * Reason Comments Follow Up * Consultation (Routine: Next available opening) - Closed Specialty Diagnoses / Procedures Referred By Contscotty t Referred To Contact Cardiovascular Disease Diagnoses Coronary artery disease involving [place] heart with unstable angina pectoris, unspecified vessel or lesion type (H) Dianne Coello APRN [employer] [address] [address] Referral ID Status Reason Start Date Expiration Date Visits Re quested Visits Authorized [id number] Closed 09/13/2022 09/13/2023 1 1 Encounter Details Date Type Department Care Team (Late st Contact Info) Description 05/05/2023 1:30 PM CDT Office Visit [facility] [address] [facility] [address] [place] [address] Dianne Coello APRN [employer] ROUTEMAN [address] [address] Johnnie Forbes MD [address] [place] [id number] Coronary artery disease involving [place] coronary artery of [place] heart without angina pectoris (Primary Dx); Ischemic cardiomyopathy; NSVT (nonsustained ventricular tachycardia) (H); Dyslipidemia; Benign essential hypertension Social History Tobacco Use Types Packs/Day Years [...] AM CDT documented as of this encounter Last Filed Vital Signs Vital Sign Reading Time Taken Comments Blood Pressure 154/80 05/05/2023 1:30 PM CDT Pulse 69 05/05/2023 1:30 PM CDT Temperature - - Respiratory Rate - - Oxygen Saturation 98% 05/05/2023 1:30 PM CDT Inhaled Oxygen Concentration - - Weight 70.3 kg (155 lb) 05/05/2023 1:30 PM CDT Height 160 cm (5' 3) 05/05/2023 1:30 PM CDT Body Mass Index 27.46 05/05/2023 1:30 PM CDT documented in this encounter Progress Notes * Johnnie Forbes MD - 05/05/2023 1:30 PM CDT HPI and Plan: Is a delightful 72-year-old woman who I originally met in 2014 when she presented with an inferior wall myocardial infarction. I successfully stented her right coronary artery but she had complex disease in her LAD/diagonal and obtuse marginal disease. When she returned for staged intervention she had already developed significant restenosis in her right coronary artery and she went on to coronary bypass grafting with Dr. Reggie Jimenez with a RUANO to her left anterior descending artery, a Y saphenous vein graft to the first and second diagonal and a saphenous vein graft to her posterior descending artery. She did well till August this year when she had recurrence of her chest discomfort. She was foundto have significant stenosis in the proximal portion of the vein graft to her PDA which ultimately was successfully stented by Dr. Barahona. She also has a history of hypertension, hyperlipidemia, nonsustained ventricular tachycardia noted after her initial infarct. Her last echocardiogram which was done when she was in the hospital with her infarct in August demonstrated an ejection fraction of 50 to 55% with moderate to severe inferior wall hypokinesia, mildMR, pulmonary hypertension estimated to be 38 mmHg plus the atrial pressure. IVC was described as normal. Madeleine returns to clinic stating she is doing quite well.Patient has no chest, arm, neck, jaw or shoulder discomfort. No dyspnea on exertion, orthopnea, or PND. No palpitations, lightheadedness, dizziness, syncope, or near syncope. No peripheral edema. Her only complaints are that of increased ecchymoses that occur spontaneously. She exercises regularly. She follows a fairly strict diet Assessment and plan Madeleine appears to be [...] will discontinue aspirin and continue Plavix only. Fasting lipid profile is nowhere near goal at an LDL of 91. I will add Zetia to her regiment and recheck a fasting lipid profile in 1 month. I congratulated her on her healthy lifestyle and encouraged her to continue to do so. I will plan on seeing her back in about 6 months. We talked about the fact that I will probably continue with lifelong clopidogrel as opposed to aspirin given the [place] meta-analysis. I will also recheck her echocardiogram at that time. Thank you for allow me to participate in this patient's care. Sincerely, Johnnie Forbes MD [facility] Today's clinic visit entailed: Review of the result(s) of each unique test - coronary angiogram, echocardiogram, lab work, EKG The following tests were independently interpreted by me as noted in my documentation: Coronary angiogram Ordering of each unique test Prescription drug management 45 minutes spent by me on the date of the encounter doing chart review, history and exam, documentation and further activities per the note Provider Link to [facility] Help Grid The level of medical decision making during this visit was of moderate complexity. Orders Placed This Encounter Procedures Lipid Profile ALT Lipid Profile ALT Follow-Up with Cardiology Orders Placed This Encounter Medications ezetimibe (ZETIA) 10 MG tablet Sig: Take 1 tablet (10 mg) by mouth daily Dispense: 90 tablet Refill: 3 isosorbide mononitrate (IMDUR) 30 MG 24 hr tablet Sig: Take 0.5 tablets (15 mg) by mouth daily Dispense: 45 tablet Refill: 3 nitroGLYcerin (NITROSTAT) 0.4 MG sublingual tablet Sig: Place 1 tablet (0.4 mg) under the tongue every 5 minutes as needed for chest pain For chest pain place 1 tablet under the tongue every 5 minutes for 3 doses. If symptoms persist 5 minutes after 1st dose call 911. Dispense: 3 tablet Refill: 3 Medications Discontinued During This Encounter Medication Reason aspirin (ASA) 81 MG chewable tablet isosorbide mononitrate (IMDUR) 30 MG 24 hr tablet Reorder (No AVS) nitroGLYcerin (NITROSTAT) 0.4 MG sublingual tablet Reorder (No AVS) Encounter Diagnoses Name Primary? Coronary artery disease involving [place] coronary artery of [place] heart without angina pectoris Yes Ischemic cardiomyopathy NSVT (nonsustained ventricular tachycardia) (H) Dyslipidemia Benign essential hypertension CURRENT MEDICATIONS: Current Outpatient Medications Medication Sig Dispense Refill amLODIPine (NORVASC) 5 MG tablet Take 1 tablet (5 mg) by mouth daily 90 tablet 3 clonazePAM (KLONOPIN) 0.5 MG tablet Take 0.5 mg by mouth nightly as needed for anxiety clopidogrel (PLAVIX) 75 MG tablet Take 1 tablet (75 mg) by mouth daily 90 tablet 3 ezetimibe (ZETIA) 10 MG tablet Take 1 tablet (10 mg) by mouth daily 90 tablet 3 gabapentin (NEURONTIN) 300 MG capsule Take 300 mg by mouth daily as needed isosorbide mononitrate (IMDUR) 30 MG 24 hr tablet Take 0.5 tablets (15 mg) by mouth daily 45 tablet3 nitroGLYcerin (NITROSTAT) 0.[address] 1 tablet (0.4 mg) under the tongue every 5minutes as needed for chest pain For chest pain place 1 tablet under the tongue every 5 minutes for3 doses. If symptoms persist 5 minutes after 1st dose call 911. 3 tablet 3 rosuvastatin (CRESTOR) 40 MG tablet Take 1 tablet (40 mg) by mouth daily 90 tablet 3 albuterol (PROAIR HFA/PROVENTIL HFA/VENTOLIN HFA) 108 (90 Base) MCG/ACT inhaler Inhale 2 puffs intothe lungs every 6 hours (Patient not taking: Reported on 09/13/2022) ALLERGIES Allergies Allergen Reactions Lisinopril Cough PAST MEDICAL HISTORY: Past Medical History: Diagnosis Date CAD (coronary artery disease) 11/28/2014 03/10/2015 - CABG x4 with RUANO to LAD, rev SVG in Y configurations to 1st and 2nd diagonal and rev SVG to PDA 11/2014 - aspiration thrombectomy and THAI to RCA Gastric ulcer with haemorrhage Gastro-oesophageal reflux disease GIB (gastrointestinal bleeding) Hemidiaphragm paralysis left side History of angina History of blood transfusion Hyperlipidaemia Hypertension Ischemic cardiomyopathy 11-28-14 Kidney stones NSVT (nonsustained ventricular tachycardia) (H) 11-28-14 admit, runs of NSVT Retinal hemorrhage, left eye STEMI (ST elevation myocardial infarction) (H) 11-28-14 inferior NV Nov 2014 Syncope November 2014 PAST SURGICAL HISTORY: Past Surgical History: Procedure Laterality Date BYPASS GRAFT ARTERY CORONARY N/A 03/10/2015 Procedure: BYPASS GRAFT ARTERY CORONARY; Surgeon: Yoshi Jimenez MD; Location: OR CV ANGIOGRAM CORONARY GRAFT N/A 08/24/2022 Procedure: Coronary Angiogram Graft; Surgeon: Stephen Barahona MD; Location: HEART CARDIAC CATHLAB CV CORONARY ANGIOGRAM N/A 08/24/2022 Procedure: Coronary Angiogram; Surgeon: Stephen Barahona MD; Location: [facility] CARDIAC INSTRUMENT LENS GRINDER APPRENTICE CV CORONARY ANGIOGRAM N/A 08/29/2022 Procedure: Coronary Angiogram; Surgeon: Stephen Barahona MD; Location: HEART CARDIAC INSTRUMENT LENS GRINDER APPRENTICE CV INTRAVASULAR ULTRASOUND N/A 08/29/2022 Procedure: Intravascular Ultrasound; Surgeon: Stephen Barahona MD; Location: HEART CARDIAC CATHLAB CV PCI N/A 08/29/2022 Procedure: Percutaneous Coronary Intervention; Surgeon: Stephen Barahona MD; Location: HEART CARDIAC INSTRUMENT LENS GRINDER APPRENTICE HEART CATH LEFT HEART CATH 11-28-14 Successful aspiration thrombectomy, stenting of occluded RCA, with THAI placed in the mid to distal RCA, 30% ostial Left Main stenosis, Complex trifurcation lesion in the mid LAD involving two diagonals, the mid LAD and septal beverage manager, 80% stenosis in diagonal and LAD, 99% stenosis distal CFX FAMILY HISTORY: Family History Problem Relation Age of Onset Cancer Brother from cancer, supposedly from agent orange Heart Disease Mother possibly had heart problems? SOCIAL HISTORY: Social History Socioeconomic History Marital status: Spouse name: None Number of children: None Years of education: None Highest education level: None Tobacco Use Smoking status: Never Smokeless tobacco: Never Substance and Sexual Activity Alcohol use: No Drug use: No Sexual activity: Yes Partners: Male Other Topics Concern Caffeine Concern No Comment: chocolate, an occasional coca cola Sleep Concern Yes Stress Concern No Special Diet No Exercise Yes Comment: Yardwork Review of Systems: Skin: Eyes: ENT: Respiratory: Negative Cardiovascular: Negative Gastroenterology: Genitourinary: Musculoskeletal: Neurologic: Psychiatric: Heme/Lymph/Imm: Endocrine: Physical Exam: Vitals: BP (!) 154/80 (BP Location: Right arm, Patient Position: Sitting, Cuff Size: Adult Regular) Pulse 69 Ht 1.6 m (5' 3) Wt 70.3 kg (155 lb) SpO2 98% BMI 27.46 kg/m?? Constitutional: cooperative, alert and oriented, well developed, well nourished, in no acute distress Skin: warm and dry to the touch, no apparent skin lesions or masses noted Head: normocephalic, no masses or lesions Eyes: pupils equal and round, conjunctivae and lids unremarkable, sclera white, no xanthalasma, EOMS intact, no nystagmus Lymph: ENT: no pallor or cyanosis, dentition good Neck: carotid pulses are full and equal bilaterally;no carotid bruit Respiratory: normal breath sounds, clear to auscultation, normal A-P diameter, normal symmetry, normal respiratory excursion, no use of accessory muscles Cardiac: regular rhythm;normal S1 and S2;apical impulse not displaced systolic murmur;grade 1;RUSB GI: Extremities and Muscular Skeletal: no edema;no spinal abnormalities noted;normal muscle strength and tone Neurological: no gross motor deficits Psych: affect appropriate, oriented to time, person and place CC Dianne Coello APRN [employer] [address] [id number] documented in this encounter Plan of Treatment Upcoming Encounters Date Type Department Care Team (Late st Contact Info) Description 11/14/2023 10:15 AM AIRCRAFT ELECTRICAL SYSTEMS SPECIALIST Lab [address] [place] [address] 11/15/2023 10:30 AM AIRCRAFT ELECTRICAL SYSTEMS SPECIALIST Office Visit [address] [place] [address] Johnnie Forbes MD [address] [place] [address] Scheduled Orders Name Type Priority Associated Diagnoses Orde r Schedule Lipid Profile Lab Routine Coronary artery disease involving [place] coronary artery of [place] heart without angina pectoris Expected: 11/01/2023 (Approximate), Expires: 05/05/2024 ALT Lab Routine Coronary artery disease involving [place] coronary artery of [place] heart without angina pectoris Expected: 11/01/2023 (Approximate), Expires: 05/05/2024 Scheduled Referrals Name Type Priority Associated Diagnoses Orde r Schedule Follow-Up with Cardiology Referral Routine: Next available opening Coronary artery disease involving [place] coronary artery of [place] heart without angina pectoris Ischemic cardiomyopathy NSVT (nonsustained ventricular tachycardia) (H) Dyslipidemia Benign essential hypertension Expected: 11/05/2023 (Approximate), Expires: 05/05/2024 documented as of this encounter Results * ALT (06/19/2023 10:58 AM CDT) Pathologist [facility] ALT 17 0 - 50 U/L 06/19/2023 11:41 AM CDT [facility] Comment:Reference intervals for this test were updated on 03/13/2023 to more accurately reflect our healthy population. There may be differences in the flagging of prior results with similar values performed with this method. Interpretation of those prior results can be made in the context of the updated reference intervals. Blood STRUCTURE OF LEFT UPPER LIMB / Unknown Venipuncture / Unknown 06/19/2023 10:58 AM CDT 06/19/2023 10:59 AM CDT Johnnie Forbes MD LAB - BLOOD [facility] [address] Lab (1st floor, no room number) [place] [address], [facility] [phone] * Lipid Profile (06/19/2023 10:58 AM CDT) Cholesterol 135 <200 mg/dL 06/19/2023 6:28 PM CDT [facility] Triglycerides 64 <150 mg/dL 06/19/2023 6:28 PM CDT [facility] Direct Measure HDL 66 >=50 mg/dL 2022 6:28 PM CDT [facility] LDL Cholesterol Calculated 56 <=100 mg/dL 06/19/2023 6:28 PM CDT [facility] Non HDL Cholesterol 69 <130 mg/dL 06/19/2023 6:28 PM CDT [facility] Blood STRUCTURE OF LEFT UPPER LIMB / Unknown Venipuncture / Unknown 06/19/2023 10:58 AM CDT 06/19/2023 10:59 AM CDT Narrative [facility] - 06/19/2023 6:28 PM CDT Cholesterol Desirable: ??<200 mg/dL Triglycerides [...] ??Greater than or equal to 220 mg/dL Johnnie Forbes MD LAB - BLOOD [facility] Core Lab [address] [facility] [place] [address], [facility] [phone] documented in this encounter Visit Diagnoses Diagnosis Coronary artery disease involving [place] coronary artery of [place] heart without angina pectoris- Primary Ischemic cardiomyopathy Other specified forms of chronic ischemic heart disease NSVT (nonsustained ventricular tachycardia) (H) Paroxysmal ventricular tachycardia Dyslipidemia Other and unspecified hyperlipidemia Benign essential hypertension Essential hypertension, benign documented in this encounter Care Teams Dairy Frozen Manager Relationship Specialty Start Date End Date Marcelina Devine MD [facility] [id number] [place] [id number] PCP - General Family Practice 12/05/14 Dianne Coello APRN [employer]EM[employer] [address] [place] [address] Assigned Heart and Vascular Provider 09/17/22 05/05/23 Johnnie Forbes MD [address] [place] [address] Cardiovascular Disease 03/02/23 documented as of this encounter
--- OUTSIDE RECORDS SUMMARY | 2023-10-11 01:32 | XMS_ITS | Clinical Summary ---
Author Name Unknown Organization [facility] Address [place], [place] [address] Care Team Providers Care Ballroom Dance Instructor Name Role Phone Marcelina Devine MD Primary Care Provider + Allergies Active Allergy Reactions Criticality Noted Date Comments Lisinopril Cough Low 07/14/2015 Medications Medication Sig Dispensed Refills Start Date End Date Status isosorbide mononitrate (IMDUR) 30 mg extended release tablet 24 Hour 0 08/31/2022 Active albuterol HFA (Ventolin HFA) 90 mcg/actuation inhalerIndications:R estrictive lung disease Inhale 1-2 Puffs by mouth every 4 hours while awake. 6.7 g 3 09/02/2022 Active amLODIPine (NORVASC) 5 mg tabletIndications:CA D, multiple vessel Take 1 Tablet (5 mg) by mouth once daily. 90 Tablet 3 09/02/2022 Active clopidogreL (PLAVIX) 75 mg tabletIndications:CA D, multiple vessel Take 1 Tablet (75 mg) by mouth. 0 09/02/2022 Active nitroglycerin (NITROSTAT) 0.4 mg sublingual tabletIndications:CA D, multiple vessel [address] 1 tablet under the tongue every 5 minutes if needed for Chest Pain. 1 Tablet 1 09/02/2022 Active rosuvastatin (CRESTOR) 40 mg tabletIndications:CA D, multiple vessel,Hyperlipidemi a, unspecified hyperlipidemia type Take 1 Tablet (40 mg) by mouth at bedtime. 90 Tablet 3 09/02/2022 Active clonazePAM (KLONOPIN) 0.5 mg tabletIndications:In somnia, idiopathic Take 1 Tablet (0.5 mg) by mouth at bedtime. 30 Tablet 5 09/21/2023 Active gabapentin (NEURONTIN) 300 mg capsuleIndications:C hronic toe pain, left foot Take 1 Capsule (300 mg) by mouth at bedtime. 90 Capsule 4 09/21/2023 Active oxyCODONE (ROXICODONE) 5 mg immediate release tabletIndications:CA D, multiple vessel,Post-op pain Take 1 Tablet (5 mg) by mouth every 6 hours if needed for Pain. Bedtime daily 30 Tablet 0 09/02/2022 3 Discontinue d(*Patient states no longer taking) gabapentin (NEURONTIN) 300 mg capsuleIndications:C hronic toe pain, left foot TAKE 1 TABLET BY MOUTH AT BEDTIME 90 Capsule 2 12/05/2022 3 Discontinue d(Reorder (E-cancel not sent)) clonazePAM (KLONOPIN) 0.5 mg tabletIndications:In somnia, idiopathic Take 1 Tablet (0.5 mg) by mouth at bedtime. 30 Tablet 0 08/23/2023 3 Discontinue d(Reorder (E-cancel not sent)) Active Problems Problem Noted Date Diagnosed Date Coronary artery disease invo lving coronary bypass graft of craig heart with angina pectoris 09/24/2023 NSVT (nonsustained ventricular tachycardia) 05/2021 Hypertension 08/27/2018 Hx of adenomatous colonic polyps 02/06/2017 Overview: - 2 adenomas; repeat 2024. 01/2017 4 polyps. 1 10 mm; 1 20-25 mm both advanced polyps. Repeat 3-6 months. -1 5 mm polyp; repeat in 2019 Hemorrhoids, internal 02/06/2017 Overview: History of rectal bleeding Restrictive lung disease 09/12/2015 Overview: Severe on spirometry 08/2015. Sees Dr. Gerard at [facility]. Also paralysed left hemidiaphragm Major depressive disorder, single episode, moder ate 04/27/2015 CAD, multiple vessel 12/13/2014 Overview: 11/2014--acute STEMI in RCA which was stent. 4v CABG 03/2015 Hyperlipidemia 12/13/2014 Overview: [facility]: LDL 174 Routine health maintenance 03/09/2010 Overview: Patient declines TD, mammo Resolved Problems Problem Noted Date Diagnosed Date Resolved Date Acute gastric ulcer without hemorrhage or perforation 10/09/2018 09/24/2023 Overview: 10/2018 several small pre duodenal Encounters Date Type Department Care Team Description 09/21/2023 12:15 PM [employer] TEACHER Office Visit [address] [address] Marcelina Devine MD Medicare ANNUAL (subsequent) Visit 09/21/2023 Travel 09/15/[address] [address] Juan Bryson, PharmD Pharmacist Medication Management (Offer comprehensive medication review before Wellness exam) 08/17/[address] [address] Marcelina Devine MD Refill Request (Clonazepam) from Last 3 Months Family History Medical History Relation Name Comments Cancer Brother 1 Other Brother 1 Other Brother 2 Good Health Daughter Cancer Mother Good Health Sister Good Health Son Relation Name Status Comments Brother 1 complications o f Bright's disease Brother 2 liver cancer Brother 3 Brother 4 Brother 5 Brother 6 Ed (Age 66) Daughter Alive Father Mother Sister Alive Son Alive Social History Tobacco Use Types Packs/Day Years Used Date Smoking Tobacco: Never Smokeless Tobacco: Never Tobacco Cessation:Counseling Given: Yes Alcohol Use Standard Drinks/Week Comments No 0 (1 standard drink = 0.6 oz pur e alcohol) PHQ-2 Answer Date Recorded PHQ-2 TOTAL SCORE 0 09/21/2023 Social Connections Answer Date Recorded Frequency of Communication with Friends and Fami ly 0 09/21/2023 Financial Resource Strain Answer Date R ecorded Difficulty of Paying Living Expenses 3 09/21/2023 Difficulty of Paying Living Expenses Not on file 09/21/2023 Food Insecurity Answer Date Recorded Worried About Running Out of Food in the Last Ye ar 1 09/21/2023 Transportation Needs Answer Date Record ed Lack of Transportation (Medical) 1 09/21/2023 Housing Stability Answer Date Recorded Unable to Pay for Housing in the Last Year 1 09/21/2023 Sex and Gender Information Value Date Recorded Sex Assigned at Not on file Gender Identity Not on file Sexual Orientation Not on file Obstetrics History Last Filed Vital Signs Vital Sign Reading Time Taken Comments Blood Pressure 134/80 09/21/2023 12:21 PM GR[employer] TEACHER Pulse 64 09/21/2023 12:19 PM GR[employer] 7 [employer] 8 TEACHER Temperature 36.6 ??C (97.9 ??F) 04/17/2018 12:40 PM C DT Respiratory Rate 22 09/12/2016 4:05 PM GR[employer] 8 TEACHER Oxygen Saturation 98% 09/12/2016 5:15 PM GR[employer] 7 [employer] 8 TEACHER Inhaled Oxygen Concentration - - Weight 76.8 kg (169 lb 4.8 oz) 09/21/2023 12:19 PM GR[employer] 8 TEACHER Height 160 cm (5' 3) 09/21/2023 12:19 PM GR[employer] 7 [employer] 8 TEACHER Body Mass Index 29.99 09/21/2023 12:19 PM GR[employer] 8 TEACHER Plan of Treatment Health Maintenance Due Date Last Done Comments COVID-19 vaccine series (#1) 1948 Tdap 1959 Hepatitis C screening for ag e 18-79 1966 Tetanus booster 1968 Zoster (shingles) series for age 50+ (1 of 2) 1998 Pneumococcal series for age 65+ (1 of 1 - PCV) 2013 Influenza for age 65+ 06/02/2023 Medicare Wellness for age 65+ 09/20/2024, 03/03/2022, 09/08/2021, Additional history exists BMI (ht and wt on same day) for age 18+ 09/21/2024 09/21/2023, 09/02/2022, 03/03/2022, Additional history exists Depression screening for age 12+ 09/21/2024 09/21/2023, 03/03/2022, 09/08/2021, Additional history exists Colonoscopy through age 75 09/30/202409/30, 09/29/2020, 07/27/2017, Additional history exists Lipids for age 45-75 09/08/2026 09/08/2021, 08/13/2020, 06/14/2019, Additional history exists DEXA/DXA scan for age 65+ Completed 08/29/2017 Advance Directives Documents on File Type Date Recorded Patient Forest Worker Expl anation Power of Bathhouse Attendant 09/26/2023 4:01 PM Zina r of Bathhouse Attendant - 07/26/2023 Healthcare Directive 09/26/2023 4:00 PM H ealthCare Directive - 07/26/2023 Care Teams Ballroom Dance Instructor Relationship Specialty Start Date End Date Marcelina Devine MD PCP - General 03/04/10
--- OUTSIDE RECORDS SUMMARY | 2023-10-11 01:32 | XMS_ITS | Encounter Summary ---
Author Name Unknown Organization Line [place] Address [facility] [place] [address] Care Team Providers Care House Carpenter Helper Name Role Phone Marcelina Devine MD Primary Care Provider + Johnnie Forbes MD Unavailable [phone] Johnnie Forbes MD Unavailable Encounter Details Date Type Department Care Team (Late st Contact Info) Description 06/19/2023 11:15 AM CDT [facility] [address] [place] [address] Johnnie Fobres MD [address] [facility] [address] [place], [place] [id number] Social History Tobacco Use Types Packs/Day Years [...] st Contact Info) Description 11/14/2023 10:15 AM RADIO INTERFERENCE TROUBLE SHOOTER Lab [facility] [address] [place] [phone] 11/15/2023 10:30 AM RADIO INTERFERENCE TROUBLE SHOOTER Office Visit [facility] [address] [place] [phone] Johnnie Forbes MD [address] [place] [id number] documented as of this encounter Procedures Procedure Name Priority Date/Time Associated Diagnosis Comments LIPID PROFILE Routine 06/19/2023 10:58 AM CDT ALT Routine 06/19/2023 10:58 AM CDT documented in this encounter Results * ALT (06/19/2023 10:58 AM CDT) ALT 17 0 - 50 U/L 06/19/2023 11:41 AM CDT LABORATORY Comment:Reference intervals for this [...] MD LAB - BLOOD [facility] LABORATORY [facility] [address] Lab (1st floor, no room number) [place] [address], [facility] [phone] * Lipid Profile (06/19/2023 10:58 AM CDT) [...] Forbes MD LAB - BLOOD [facility] LABORATORY [facility] [place] [facility] [address] [facility], [address] [place] [address], [facility] [phone] documented in this encounter Visit Diagnoses Not on filedocumented in this encounter Care Teams House Carpenter Helper Relationship Specialty Start Date End Date Marcelina Devine MD [facility] [id number] [place] [address] PCP - General Family Practice 12/05/14 Johnnie Forbes MD [address] [place] [address] Cardiovascular Disease 03/02/23 Johnnie Forbes MD [address] [place] [id number] Assigned Heart and Vascular Provider 05/06/23 documented as of this encounter
[2023-10-11 01:33] LABS: Basophils Absolute Auto 0.02 K/uL (0.00-0.30); Basophils Percent Auto 0.3 % (0.0-3.0); Eosinophils Absolute Auto 0.05 K/uL (0.00-0.50); Eosinophils Percent Auto 0.7 % (0.0-7.0); Hematocrit 47.4 % (33.0-51.0); Hemoglobin* 14.7 gm/dL (12.0-16.0); Immature Granulocytes Abs Auto 0.02 K/uL (0.00-0.30); Immature Granulocytes Pct Auto 0.3 %; Lymphocytes Absolute Auto 1.56 K/uL (0.90-2.90); Lymphocytes Percent Auto 22.3 % (20-44); Mean Corpuscular HGB Conc 31 gm/dL (32-36); Mean Corpuscular Hemoglobin 26 pg (26-34); Mean Corpuscular Volume 84 fL (80-100); Monocytes Percent Auto 6.7 % (0.0-11.0); Neutrophils Absolute Auto 4.88 K/uL (1.7-7.0); Neutrophils Percent Auto 69.7 % (42.0-72.0); Platelet Count* 178 K/uL (140-440); RDW Coefficient of Variation % 13.8 % (11.5-15.5); Red Blood Count 5.67 m/uL (4.00-5.20)
[2023-10-11 01:36] LABS: Albumin* 4.9 g/dL (3.3-5.0); Chloride* 108 mmol/L (96-114); Sodium* 142 mmol/L (135-149)
[2023-10-11 01:37] LABS: Potassium* 3.9 mmol/L (3.6-5.1); Slide Review Reflex No
[2023-10-11 01:39] LABS: Alkaline Phosphatase* 66 U/L (40-150); Anion Gap 12 mEq/L (7-15); Aspartate Amino Transferase* 34 U/L (12-35); Bilirubin Total* 0.5 mg/dL (0.1-1.5); Blood Urea Nitrogen* 26 mg/dL (7-30); Carbon Dioxide* 22 mmol/L (20-32); Creatinine* 0.9 mg/dL (0.5-1.5); Est. Creatinine Clearance* 40.21; Estimated Glomerular Filt Rate 67 ml/min; Total Protein* 7.7 g/dL (6.0-8.3)
--- NOTE | 2023-10-11 01:39 | ED.NURSE ---
pt report given to oncvenancio RN
[2023-10-11 01:40] LABS: Alanine Aminotransferase* 24 U/L (4-35); Glucose* 127 mg/dL (60-115); Magnesium* 2.4 mg/dL (1.5-2.6)
[2023-10-11 01:48] LABS: NT Pro B Type NatriureticPept* 526 pg/mL
[2023-10-11 01:57] LABS: Vitamin D 25 Hydroxy* 47 ng/mL (30-80)
[2023-10-11 02:07] LABS: PCR FLU A Negative PCR FLU A (Negative); PCR FLU B Negative PCR FLU B (Negative); PCR RSV Negative PCR RSV (Negative); SARS PCR* Negative SARS-CoV-2 (Negative)
[2023-10-11 02:14] LABS: D Dimer Quantitative* < 0.27 ug/ml (0.00-0.50)
[2023-10-11 02:35] LABS: Troponin, Point-of-Care* 0.01 ng/ml (0.01-0.04)
[2023-10-11 02:38] LABS: Free T4 Free Thyroxine* 0.93 ng/dL (0.70-1.85)
[2023-10-11] MEDS: FUROSEMIDE 10 MG/ML inj 40 MG IVP (02:39)
== END 2023-10-11 03:33 | disposition home or self-care (01) ==
PROVIDERS: Emergency Provider Family Medicine
DX: I50.9 Heart failure, unspecified (principal); I10 Essential (primary) hypertension; Z79.899 Other long term (current) drug therapy
CPT/HCPCS: 36415; 71045; 80053; 82306; 83735; 83880; 84439; 84443; 84484; 85025; 85379; 87631; 93005; 96374; 99284; 99285; J1940

== ENCOUNTER 2024-09-22 12:40 | Emergency (ER) | payer MEDICARE, SELFPAY ==
--- OUTSIDE RECORDS SUMMARY | 2024-09-22 12:42 | XMS_ITS ---
Author Organization Unknown Patient Care team information Name Category Status Period Participants - - Proposed period not known -
[2024-09-22 12:55] VITALS: BP 148/80; PULSE 82; RESP 14; TEMP 37.1; O2SAT 96; BMI 28.0
--- NOTE | 2024-09-22 13:24 | CRLHL7_ITS ---
For Patients: As a result of the Century Cures Act, medical imaging exams and procedure reports are released immediately into your electronic medical record. You may view this report before your referring provider. If you have questions, please contact your health care provider. INDICATION: Scleral icterus. Pale stools. TECHNIQUE: CT abdomen and pelvis acquired with 78 mL Isovue 370 contrast. COMPARISON: None. FINDINGS: Lower chest: Bibasilar atelectasis. No focal consolidation. Liver: Subcapsular 2.3 x 1.3 cm cyst in the posterior right lobe of the liver. There are additional scattered too small to characterize hypodense hepatic lesions, likely benign in the absence of a known malignancy. Gallbladder and bile ducts: No calcified gallstones. No significant intrahepatic or extrahepatic biliary duct dilation. Pancreas: Unremarkable. Spleen: Subtle punctate hypodense lesion in the upper pole, statistically benign. Adrenal glands: Unremarkable. Kidneys: Kidneys enhance symmetrically, without hydronephrosis. Too small to characterize hypodense bilateral renal lesions. Retroperitoneum: No lymphadenopathy. Bowel and mesentery: Bowel is not obstructed. No significant ascites, no pneumoperitoneum. Scattered colonic diverticulosis, without evidence of acute diverticulitis. Normal appendix. Mild colitis of the rectosigmoid colon. Bladder: Unremarkable for degree of distention. Reproductive organs: Ill-defined hypodense lesion in the posterior uterus with punctate calcification, favored to reflect a fibroid. Pelvic lymph nodes: No lymphadenopathy. Vessels: Extensive atherosclerotic calcifications. Abdominal wall: No acute abdominal wall abnormality. Bones: Multilevel degenerative changes of the spine. Bones are osteopenic. IMPRESSION: 1. Scattered too small to characterize hypodense lesions throughout the liver, favored to be benign in the absence of a known malignancy. 2. No significant intrahepatic or extrahepatic biliary duct dilation. 3. Mild colitis of the rectosigmoid colon. 4. Ill-defined hypodense lesion in the posterior uterus with punctate calcification, favored to reflect a fibroid. Recommend follow-up pelvic ultrasound, on a nonemergent basis. Please note that all CT scans at this facility use dose modulation, iterative reconstruction, and/or weight-based dosing when appropriate to reduce radiation dose to as low as reasonably achievable. Dictated by Leroy Diggs MD @ 09/22/2024 4:18:53 PM (Electronically Signed)
--- NOTE | 2024-09-22 13:45 | ED.GENADULT ---
HPI - General Adult General Date Seen: 09/22/24 Chief complaint: Skin/Abscess/Foreign Body Stated complaint: weakness,jaundice in sclera,yellow stools Time Seen by Provider: 09/22/24 13:07 Source: patient Mode of arrival: ambulatory Limitations: no limitations History of Present Illness HPI narrative: Patient is a 74-year-old female with history of OCD presenting to the emergency department for multiple complaints. She is mostly concerned about weakness and scleral icterus. She states on Monday she noticed she was feeling very weak and was unable to get out of her couch. This weakness has improved but she still states she is feeling fatigued and not herself. The weakness is mostly noted when she is exerting herself. She has had previous bypass surgery done several years ago. She also noticed she had bad breath last night which is extremely abnormal for her as she usually brushes her teeth 3 times a day. At that same time she had a friend noticed that her eyes appeared slightly yellow tinged. Patient has no history of gallbladder disease but does states she has been having light yellow stools which are abnormal for her. Last week she has some gnawing pain in her abdomen and chest that resolved after nitro. She was concerning also be related to previous ulcer she has been diagnosed with. She is also having some right-sided low back pain that occurred after a fall from 1 week ago were cemented on some rocks. Denies any saddle anesthesia. Has not having any pruritus. Denies fevers, chills, diarrhea. Has been having constipation. Related Data Home Medications ?Medication ?Instructions ?Recorded ?Confirmed amlodipine 5 mg tablet mg PO 10/11/23 clonazepam 0.5 mg tablet mg PO 10/11/23 gabapentin 300 mg capsule 300 mg PO PRN 10/11/23 nitroglycerin 0.4 mg sublingual 0.4 mg sublingual PRN 10/11/23 tablet rosuvastatin 40 mg tablet 40 mg PO 10/11/23 ezetimibe 10 mg tablet 10 mg PO DAILY 09/22/24 09/22/24 spironolactone 25 mg tablet 25 mg PO DAILY 09/22/24 09/22/24 Allergies Allergy/AdvReac Type Severity Reaction Status Date / Time lisinopril AdvReac Verified 09/22/24 12:52 Review of Systems Status of ROS: Reports: 10 or more systems reviewed and unremarkable except as noted in History and below PFSH PFSH Social History Smoking Status: Never smoker Do you use any of these nicotine containing products: None How often do you have a drink containing alcohol: never How often do you have six or more drinks on one occasion: Never AUDIT-C Alcohol total score: 0 Non-prescribed substance use: denies use Exam Narrative: Exam Narrative: Const: Well-nourished, Well-developed, in mild distress Eyes: PERRL, no conjunctival injection, and symmetrical lids HENT: Atraumatic external nose and ears. Moist mucous membranes. Neck: Symmetric, trachea midline, No thyromegaly. CVS: RRR, No murmurs or gallops. Peripheral pulses 2+ and equal in all extremities RESP: Unlabored respiratory effort. Clear to auscultation bilaterally. GI: Nontender/Nondistended, No rebound or guarding. MSK:Extremities w/o deformity, Normal Active ROM Skin: Warm, Dry. No rashes or lesions. Neuro: Normal Muscle tone, No focal neurological deficits. Psych: Awake, Alert, & Oriented x3. Appropriate mood and affect. Const: Vital Signs, click to edit/add: Vital Signs - 24 hr 09/22/24 12:55 09/22/24 14:52 09/22/24 16:37 Temperature 98.7 F 98.1 F 98.7 F Pulse Rate [Pulse Oximeter] 82 63 65 Respiratory Rate 14 18 18 Blood Pressure [Ri ght Upper Arm] 148/80 H 150/82 H 117/70 Pulse Oximetry 96 95 95 Oxygen Delivery Me thod Room Air Room Air Room Air Course Vital Signs Vital signs: Initial Vital Signs Temperature 98.7 F 09/22/24 12:55 Temperature Source Temporal Artery Scan 09/22/24 12:55 Pulse Rate 82 09/22/24 12:55 Pulse Rhythm Regular 09/22/24 12:55 Respiratory Rate 14 09/22/24 12:55 Blood Pressure 148/80 H 09/22/24 12:55 Blood Pressure Mean 102 09/22/24 12:55 Blood Pressure Position Sitting 09/22/24 12:55 Pulse Oximetry 96 09/22/24 12:55 Oxygen Delivery Method Room Air 09/22/24 12:55 Vital Signs Temperature 98.7 F 09/22/24 12:55 Pulse Rate 82 09/22/24 12:55 Respiratory Rate 14 09/22/24 12:55 Blood Pressure 148/80 H 09/22/24 12:55 Pulse Oximetry 96 09/22/24 12:55 Oxygen Delivery Method Room Air 09/22/24 12:55 Temperature 98.7 F 09/22/24 16:37 Pulse Rate 65 09/22/24 16:37 Respiratory Rate 18 09/22/24 16:37 Blood Pressure 117/70 09/22/24 16:37 Pulse Oximetry 95 09/22/24 16:37 Oxygen Delivery Method Room Air 09/22/24 16:37 Medical Decision Making MDM Narrative Medical decision making narrative: Patient is a 74-year-old female presenting for multiple complaints. These include scleral icterus, bad breath, weakness, epigastric pain. All the symptoms have come and gone over the past week. Currently she is having no symptoms. For states multiple vague symptoms I will do CT scan with IV contrast to make sure she is not having any intra-abdominal issues that could be causing her sclera icterus. I do not noticing scleral icterus and my exam. Will also order an EKG, troponin, CBC, BMP, urinalysis, direct bilirubin, COVID/flu/RSV. Lab work returned showing no concerning abnormalities. LFTs are all within normal limits. Urinalysis shows no concerning findings. Viral swabs within normal limits. EKG shows no concerning abnormalities. Troponin within normal limits in as the 9 sensation in her epigastric region was last we could do not believe a repeat troponin is necessary. CT scan reviewed by myself and the radiologist shows no acute intra-abdominal abnormalities. I did inform her about this possible fibroid in the benign liver lesions. She states she understands. She continues to be asymptomatic. On my review vital signs are stable throughout time in in the emergency department. Oximetry stayed in the mid to high 90s. panel monitor showed no concerning arrhythmias. At this point I believe she is safe for discharge he is agreeable to this plan. Lab Data Labs: Lab Results 09/22/24 09/22/24 Range/Units 13:25 13:40 WBC 6.45 (4.50-11.00) K/uL RBC 5.30 H (4.00-5.20) m/uL Hgb 14.0 (12.0-16.0) gm/dL Hct 44.5 (33.0-51.0) % MCV 84 (80-100) fL MCH 26 (26-34) pg MCHC 32 (32-36) gm/dL RDW Coeff of Viviana 13.7 (11.5-15.5) % Plt Count 127 L (140-440) K/uL Neut % (Auto) 65.6 (42.0-72.0) % Lymph % (Auto) 24.3 (20-44) % [place] % (Auto) 9.0 (0.0-11.0) % Eos % (Auto) 0.8 (0.0-7.0) % Baso % (Auto) 0.3 (0.0-3.0) % Neut # (Auto) 4.23 (1.7-7.0) K/uL Lymph # (Auto) 1.57 (0.90-2.90) K/uL [place] # (Auto) 0.60 (0.00-0.90) K/UL Eos # (Auto) 0.05 (0.00-0.50) K/uL Baso # (Auto) 0.02 (0.00-0.30) K/uL Abs Immat Gran (auto) 0.00 (0.00-0.30) K/uL Imm/Tot Granulo (auto) 0.0 % Sodium 138 (135-149) mmol/L Potassium 4.2 (3.6-5.1) mmol/L Chloride 106 (96-114) mmol/L Carbon Dioxide 24 (20-32) mmol/L Anion Gap 8 (7-15) mEq/L BUN 25 (7-30) mg/dL Creatinine 1.0 (0.5-1.5) mg/dL Estimated Creat Clear 39.59 Estimated GFR 58 ml/min Glucose 107 (60-115) mg/dL Calcium 9.9 (8.4-10.6) mg/dL Total Bilirubin 0.5 (0.1-1.5) mg/dL Direct Bilirubin 0.2 (0.0-0.5) mg/dL AST 32 (12-35) U/L ALT 29 (4-35) U/L Alkaline Phosphatase 67 (40-150) U/L Total Protein 6.9 (6.0-8.3) g/dL Albumin 4.7 (3.3-5.0) g/dL Urine Color Yellow (Yellow) Urine Appearance Clear (Clear) Urine pH 6.0 (5.0-8.5) Ur Specific [place] 1.025 (1.000-1.030) Urine Protein Negative (Negative) Urine Glucose (UA) Negative (Negative) Urine Ketones Negative (Negative) Urine Blood Negative (Negative) Urine Nitrite Negative (Negative) Urine Bilirubin Negative (Negative) Urine Urobilinogen 0.2 (0.2-1.0) Ur Leukocyte Esterase Negative (Negative) Urine RBC 0-2 (0-2) Urine WBC 0-2 (0-5) Ur Squamous Epith Cells Few (None-Few) Urine Bacteria None (None) SARS-CoV-2 (PCR) Negative SARS-CoV-2 (Negative) Influenza Type A (PCR) Negative PCR FLU A (Negative) Influenza Type B (PCR) Negative PCR FLU B (Negative) RSV (PCR) Negative PCR RSV (Negative) POC Troponin I 0.01 (0.01-0.04) ng/ml Imaging Data CT scan abdomen pelvis: Attestation: I have reviewed the pertinent imaging results. Radiologist's impression: 1. Scattered too small to characterize hypodense lesions throughout the liver, favored to be benign in the absence of a known malignancy. 2. No significant intrahepatic or extrahepatic biliary duct dilation. 3. Mild colitis of the rectosigmoid colon. 4. Ill-defined hypodense lesion in the posterior uterus with punctate calcification, favored to reflect a fibroid. Recommend follow-up pelvic ultrasound, on a nonemergent basis. Please note that all CT scans at this facility use dose modulation, iterative reconstruction, and/or weight-based dosing when appropriate to reduce radiation dose to as low as reasonably achievable. Dictated by Leroy Diggs MD @ 09/22/2024 4:18:53 PM ECG Data Attestation: I personally reviewed and interpreted this ECG as follows: Prior ECG tracings: available for review Interpretation: Normal sinus rhythm with a rate of 63 beats per minute, normal intervals, normal axis, no ST or T-wave abnormalities. Appears similar to previous EKGs on file Discharge Plan Discharge Clinical Impression: Weakness Patient Disposition: Home, Self-Care Condition: Stable Additional Instructions: Follow-up with your primary care provider if your symptoms persist. Your lab work and imaging shows no concerning abnormalities although it does recommend you follow-up with your primary care provider to get a ultrasound of ureter is for possible fibroid. Return for new or worsening symptoms. Prescriptions: No Action spironolactone 25 mg tablet 25 mg PO DAILY ezetimibe 10 mg tablet 10 mg PO DAILY clonazepam 0.5 mg tablet PO amlodipine 5 mg tablet PO nitroglycerin 0.4 mg tablet, sublingual 0.4 mg sublingual PRN gabapentin 300 mg capsule 300 mg PO PRN rosuvastatin 40 mg tablet 40 mg PO Follow Up/Referrals: Marcelina Devine MD [Primary Care Provider] - Stand Alone Forms: [employer] Info Instructions
[2024-09-22 13:55] LABS: Basophils Absolute Auto 0.02 K/uL (0.00-0.30); Basophils Percent Auto 0.3 % (0.0-3.0); Eosinophils Absolute Auto 0.05 K/uL (0.00-0.50); Eosinophils Percent Auto 0.8 % (0.0-7.0); Hematocrit 44.5 % (33.0-51.0); Lymphocytes Absolute Auto 1.57 K/uL (0.90-2.90); Lymphocytes Percent Auto 24.3 % (20-44); Mean Corpuscular HGB Conc 32 gm/dL (32-36); Mean Corpuscular Hemoglobin 26 pg (26-34); Mean Corpuscular Volume 84 fL (80-100); Neutrophils Absolute Auto 4.23 K/uL (1.7-7.0); Neutrophils Percent Auto 65.6 % (42.0-72.0); Platelet Count* 127 K/uL (140-440); RDW Coefficient of Variation % 13.7 % (11.5-15.5); White Blood Count* 6.45 K/uL (4.50-11.00)
[2024-09-22 13:58] LABS: Slide Review Reflex No
[2024-09-22 14:06] LABS: Albumin* 4.7 g/dL (3.3-5.0); Chloride* 106 mmol/L (96-114); Potassium* 4.2 mmol/L (3.6-5.1); Sodium* 138 mmol/L (135-149)
[2024-09-22 14:08] LABS: Bilirubin Direct* 0.2 mg/dL (0.0-0.5)
[2024-09-22 14:09] LABS: Alanine Aminotransferase* 29 U/L (4-35); Alkaline Phosphatase* 67 U/L (40-150); Anion Gap 8 mEq/L (7-15); Aspartate Amino Transferase* 32 U/L (12-35); Bilirubin Total* 0.5 mg/dL (0.1-1.5); Blood Urea Nitrogen* 25 mg/dL (7-30); Carbon Dioxide* 24 mmol/L (20-32); Est. Creatinine Clearance* 39.59; Estimated Glomerular Filt Rate 58 ml/min; Glucose* 107 mg/dL (60-115); Total Protein* 6.9 g/dL (6.0-8.3)
[2024-09-22 14:10] LABS: Calcium* 9.9 mg/dL (8.4-10.6)
[2024-09-22 14:13] LABS: Appearance Urine Clear (Clear); Bilirubin Urine Negative (Negative); Blood Urine Negative (Negative); Color Urine Yellow (Yellow); Glucose Urine Negative (Negative); Ketones Urine Negative (Negative); Leukocyte Esterase Urine Negative (Negative); Nitrite Urine Negative (Negative); Protein Urine Negative (Negative); Specific Gravity Urine 1.025 (1.000-1.030); Urobilinogen Urine 0.2 (0.2-1.0)
[2024-09-22 14:21] LABS: Troponin, Point-of-Care* 0.01 ng/ml (0.01-0.04)
[2024-09-22 14:22] LABS: RBC Urine 0-2 (0-2); Squamous Epithelial Cell Urine Few (None-Few); WBC Urine 0-2 (0-5)
[2024-09-22 14:26] LABS: PCR FLU A Negative PCR FLU A (Negative); PCR FLU B Negative PCR FLU B (Negative); PCR RSV Negative PCR RSV (Negative); SARS PCR* Negative SARS-CoV-2 (Negative)
[2024-09-22 14:52] VITALS: BP 150/82; PULSE 63; RESP 18; TEMP 36.7; O2SAT 95
[2024-09-22 16:37] VITALS: BP 117/70; PULSE 65; RESP 18; TEMP 37.1; O2SAT 95
== END 2024-09-22 16:39 | disposition home or self-care (01) ==
PROVIDERS: Emergency Provider Student in an Organized Health Care Education/Training Program; PCP Family Medicine
DX: R53.1 Weakness (principal)
CPT/HCPCS: 36415; 74177; 80053; 81001; 82248; 84484; 85025; 87631; 93005; 99284; 99285; Q9967

== ENCOUNTER 2025-01-05 10:46 | Emergency (ER) | payer MEDICARE, SELFPAY ==
[2025-01-05 10:52] VITALS: BP 160/93; PULSE 73; RESP 18; TEMP 36.4; O2SAT 96; BMI 28.3
--- NOTE | 2025-01-05 11:23 | ED_ITS ---
HPI - General Adult General Chief complaint: Weakness Stated complaint: general weakness, left arm numbness, nausea Time Seen by Provider: 01/05/25 10:54 Source: patient Mode of arrival: ambulatory Limitations: no limitations History of Present Illness HPI narrative: 74-year-old female coming in today concerned about a headache. She states that 2 days ago she developed a headache behind her left eye. She took an aspirin and went away. The next day she developed another headache behind the right eye. She took an aspirin yesterday and the headache went away. However she states that she became constipated because of the aspirin in so last evening she took a laxative and she states that she had 22 episodes of diarrhea between midnight and 7:00 a.m.. Upon further conversation she states that she had the sensation that she had to urinate And/or defecate but she did not actually urinate or defecate 22 times. It is unclear how many bowel movements she actually had. She states that it was not really diarrhea but just soft stools. she states that she was up all night but this is not unusual for her as she usually is an insomniac and she does not sleep at night. She currently does not have a headache. during the middle of the night she also had a sensation of warmth that radiated from her mid upper arm down to her mid forearm. She states that other people would likely call the sensation excruciating pain which she describes it as a warmth that she felt. 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 The warm sensation did not encompass the elbow joint, the shoulder, or the wrist. Patient denies any recent illness, no coughing, no fevers or chills. She denies chest pain or shortness of breath. She denies abdominal discomfort. She denies blood in her urine or stools. She denies nausea or vomiting. She denies changes in her appetite. She denies slurred speech or difficulty walking. She denies any balance issues. She denies ringing in her ears. She denies any vision changes. She denies any recent traveling. She denies changes in her diet, no eating out or new foods. Patient states that she is here today because she is concerned about what caused her headache and she wants to get to the bottom of it. Related Data Home Medications ?Medication ?Instructions ?Recorded ?Confirmed amlodipine 5 mg tablet mg PO 10/11/23 clonazepam 0.5 mg tablet mg PO 10/11/23 gabapentin 300 mg capsule 300 mg PO PRN 10/11/23 nitroglycerin 0.4 mg sublingual 0.4 mg sublingual PRN 10/11/23 tablet rosuvastatin 40 mg tablet 40 mg PO 10/11/23 ezetimibe 10 mg tablet 10 mg PO DAILY 09/22/24 01/05/25 spironolactone 25 mg tablet 25 mg PO DAILY 09/22/24 01/05/25 Allergies Allergy/AdvReac Type Severity Reaction Status Date / Time lisinopril AdvReac Verified 01/05/25 11:04 Review of Systems Status of ROS: Reports: 10 or more systems reviewed and unremarkable except as noted in History and below [facility] Social History Smoking Status: Never smoker Do you use any of these nicotine containing products: None How often do you have a drink containing alcohol: never How often do you have six or more drinks on one occasion: Never AUDIT-C Alcohol total score: 0 Non-prescribed substance use: denies use Exam Narrative: Exam Narrative: Well-nourished well-developed patient in no acute distress. Alert and oriented. Answers questions appropriately. Mood and affect are appropriate. Patient speaks in full sentences without needing to catch their breath. HEENT: Normocephalic atraumatic. Pupils are equally round reactive to light. Extraocular muscles are intact. Conjunctivae are moist without any icterus n oted. Dry mucous membranes. Posterior pharynx is normal. Neck is soft without any lymphadenopathy or thyromegaly. No masses are appreciated. Cardiovascular: Heart is regular rate and rhythm S1 and S2 are present , 2/6 systolic murmur heard best over the right sternal border. Lungs: Clear to auscultation bilaterally no wheezes rhonchi or rales are appreciated. Patient takes deep breaths without any discomfort. Abdomen: Soft and nontender nondistended with normal bowel sounds. No guarding or rebound. Extremities: Bilateral lower extremities are without edema. Skin: Well perfused without any obvious rashes. Strength is 5/5 of the upper and lower extremities. Reflexes are 2+ and symmetric at the knees. Romberg sign is negative. Cranial nerves 3-12 are normal. There is no nystagmus either horizontally or vertically. Gait is normal. Const: Vital Signs, click to edit/add: Vital Signs - 24 hr 01/05/25 10:52 01/05/25 12:40 Temperature 97.5 F L Pulse Rate [Right Pulse Oximeter] 73 67 Respiratory Rate 18 16 Blood Pressure [Ri ght Upper Arm] 160/93 H 153/83 H Pulse Oximetry 96 94 Oxygen Delivery Me thod Room Air Room Air Course Course ED Course: Discussed with the patient that we would likely not find the exact cause of her headache. EKG, read by me, shows normal sinus rhythm with a pulse 65. no significant changes from previous EKG. Workup entirely unremarkable. Vital Signs Vital signs: Initial Vital Signs Temperature 97.5 F L 01/05/25 10:52 Temperature Source Temporal Artery Scan 01/05/25 10:52 Pulse Rate 73 01/05/25 10:52 Pulse Rhythm Regular 01/05/25 10:52 Pulse Strength 3+ Normal 01/05/25 10:52 Respiratory Rate 18 01/05/25 10:52 Blood Pressure 160/93 H 01/05/25 10:52 Blood Pressure Mean 115 H 01/05/25 10:52 Blood Pressure Position Sitting 01/05/25 10:52 Pulse Oximetry 96 01/05/25 10:52 Oxygen Delivery Method Room Air 01/05/25 10:52 Vital Signs Temperature 97.5 F L 01/05/25 10:52 Pulse Rate 73 01/05/25 10:52 Respiratory Rate 18 01/05/25 10:52 Blood Pressure 160/93 H 01/05/25 10:52 Pulse Oximetry 96 01/05/25 10:52 Oxygen Delivery Method Room Air 01/05/25 10:52 Temperature 97.5 F L 01/05/25 10:52 Pulse Rate 67 01/05/25 12:40 Respiratory Rate 16 01/05/25 12:40 Blood Pressure 153/83 H 01/05/25 12:40 Pulse Oximetry 94 01/05/25 12:40 Oxygen Delivery Method Room Air 01/05/25 12:40 Medical Decision Making MDM Narrative Medical decision making narrative: 74-year-old female with headache now resolved. Loose stools overnight, now resolved. Patient will follow-up as needed. Lab Data Lab results reviewed: Yes I reviewed the patient's lab results Labs: Lab Results 01/05/25 01/05/25 Range/Units 11:30 12:25 WBC 6.21 (4.50-11.00) K/uL RBC 5.33 H (4.00-5.20) m/uL Hgb 14.4 (12.0-16.0) gm/dL Hct 45.7 (33.0-51.0) % MCV 86 (80-100) fL MCH 27 (26-34) pg MCHC 32 (32-36) gm/dL RDW Coeff of Viviana 13.7 (11.5-15.5) % Plt Count 171 (140-440) K/uL Neut % (Auto) 78.8 H (42.0-72.0) % Lymph % (Auto) 14.8 L (20-44) % [place] % (Auto) 5.6 (0.0-11.0) % Eos % (Auto) 0.3 (0.0-7.0) % Baso % (Auto) 0.3 (0.0-3.0) % Neut # (Auto) 4.90 (1.7-7.0) K/uL Lymph # (Auto) 0.90 (0.90-2.90) K/uL [place] # (Auto) 0.30 (0.00-0.90) K/UL Eos # (Auto) 0.02 (0.00-0.50) K/uL Baso # (Auto) 0.02 (0.00-0.30) K/uL Abs Immat Gran (auto) 0.01 (0.00-0.30) K/uL Imm/Tot Granulo (auto) 0.2 % Sodium 140 (135-149) mmol/L Potassium 4.2 (3.6-5.1) mmol/L Chloride 106 (96-114) mmol/L Carbon Dioxide 23 (20-32) mmol/L Anion Gap 11 (7-15) mEq/L BUN 24 (7-30) mg/dL Creatinine 1.0 (0.5-1.5) mg/dL Estimated Creat Clear 39.59 Estimated GFR 58 ml/min Glucose 104 (60-115) mg/dL Calcium 10.1 (8.4-10.6) mg/dL Total Bilirubin 0.8 (0.1-1.5) mg/dL Direct Bilirubin 0.2 (0.0-0.5) mg/dL AST 45 H (12-35) U/L ALT 35 (4-35) U/L Alkaline Phosphatase 62 (40-150) U/L Troponin I < 0.01 (0.01-0.04) ng/mL C-Reactive Protein < 0.5 L (0.5-1.0) mg/dL Total Protein 7.1 (6.0-8.3) g/dL Albumin 4.8 (3.3-5.0) g/dL TSH 3.240 (0.270-4.20) uIU/mL Urine Color Yellow (Yellow) Urine Appearance Clear (Clear) Urine pH 5.5 (5.0-8.5) Ur Specific [place] 1.015 (1.000-1.030) Urine Protein Negative (Negative) Urine Glucose (UA) Negative (Negative) Urine Ketones Trace A (Negative) Urine Blood Negative (Negative) Urine Nitrite Negative (Negative) Urine Bilirubin Negative (Negative) Urine Urobilinogen 0.2 (0.2-1.0) Ur Leukocyte Esterase Negative (Negative) Urine RBC 0-2 (0-2) Urine WBC 0-2 (0-5) Ur Squamous Epith Cells Moderate A (None-Few) Urine Bacteria Few A (None) ECG Data Attestation: I personally reviewed and interpreted this ECG as follows: Discharge Plan Discharge Clinical Impression: Headache, Loose stools Patient Disposition: Home, Self-Care Condition: Stable Additional Instructions: Your workup today did not reveal any significant abnormalities. Recommend you follow-up with your primary care provider as needed. Prescriptions: No Action spironolactone 25 mg tablet 25 mg PO DAILY ezetimibe 10 mg tablet 10 mg PO DAILY clonazepam 0.5 mg tablet PO amlodipine 5 mg tablet PO nitroglycerin 0.4 mg tablet, sublingual 0.4 mg sublingual PRN gabapentin 300 mg capsule 300 mg PO PRN rosuvastatin 40 mg tablet 40 mg PO Follow Up/Referrals: Marcelina Devine MD [Primary Care Provider] - Stand Alone Forms: SNRL[facility]st[facility] Info Instructions
--- OUTSIDE RECORDS SUMMARY | 2025-01-05 11:30 | XMS_ITS | Encounter Summary ---
Author Organization [facility] Address [address] [place] [address]. [place] [address] Care Team Providers Care Chemical Production Engineer Name Role Phone Marcelina Devine MD Primary Care Provider + Johnnie Forbes MD Unavailable Johnnie Forbes MD Unavailable Reason for Visit * Reason Onset Date Comments Medication Request 03/13/2024 Erroneous encounter-disregard 03/13/2024 Encounter Details Date Type Department Care Team (Late st Contact Info) Description 03/13/2024 Telephone [facility] [address] [place] [id number] Johnnie Forbes MD [address] [facility] [address] [place], [place] [address] Medication Request; Erroneous encounter-disregard Social History Tobacco Use Types Packs/Day Years Used Date Smoking Tobacco: Never Smokeless Tobacco: Never Alcohol Use Standard Drinks/Week Comments No 0 (1 standard drink = 0.6 oz pur e alcohol) PHQ-2 Answer Date Recorded PHQ-2 Score 0 11/15/2023 Adolescent Education Answer Date Record ed Getting School Help Needed Not on file 07/07 Comments No Sex and Gender Information Value Date Recorded Sex Assigned at Not on file Legal 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 MARKER MACHINE Gender Identity Not on file Sexual Orientation Not on file documented as of this encounter Plan of Treatment Not on file documented as of this encounter Visit Diagnoses Not on filedocumented in this encounter Care Teams Chemical Production Engineer Relationship Specialty Start Date End Date Marcelina Devine MD [facility] [address] [place] [address] PCP - General Family Practice 12/05/14 Johnnie Forbes MD [address] [place] [id number] Cardiovascular Disease 03/02/23 Johnnie Forbes MD [address] [place] [id number] Assigned Heart and Vascular Provider 05/06/23 documented as of this encounter
--- OUTSIDE RECORDS SUMMARY | 2025-01-05 11:30 | XMS_ITS | Clinical Summary ---
Author Organization [place] Address [address] [place] [address]. [place] [address] Care Team Providers Care Two Way Radio Installer Name Role Phone Marcelina Devine MD Primary Care Provider + Johnnie Forbes MD Unavailable [phone] Johnnie Forbes MD Unavailable [phone] Allergies Active Allergy Reactions Criticality Noted Date Comments Lisinopril Cough 10/06/2016 Medications clonazePAM (KLONOPIN) 0.5 MG tablet Take 0.5 mg by mouth nightly as needed for anxiety Active gabapentin (NEURONTIN) 300 MG capsule Take 300 mg by mouth daily as needed Active albuterol (PROAIR HFA/PROVENTIL HFA/VENTOLIN HFA) 108 (90 Base) MCG/ACT inhaler Inhale 2 puffs into the lungs every 6 hours Active rosuvastatin (CRESTOR) 40 MG tablet Take 1 tablet (40 mg) by mouth daily 90 tablet 3 2 Active spironolactone (ALDACTONE) 25 MG tabletIndications :Coronary artery disease involving [place] coronary artery of [place] heart without angina pectoris,Ischemic cardiomyopathy,Be nign essential hypertension Take 1 tablet (25 mg) by mouth daily 90 tablet 3 4 Active nitroGLYcerin (NITROSTAT) 0.4 MG sublingual tabletIndications :Coronary artery disease involving [place] coronary artery of [place] heart without angina pectoris Place 1 tablet (0.4 mg) under the tongue every 5 minutes as needed for chest pain For chest pain place 1 tablet under the tongue every 5 minutes for 3 doses. If symptoms persist 5 minutes after 1st dose call 911. 3 tablet 3 4 Active amLODIPine (NORVASC) 5 MG tabletIndications :Benign essential hypertension Take 1 tablet (5 mg) by mouth daily 90 tablet 3 4 Active aspirin 81 MG EC tabletIndications :Coronary artery disease involving [place] coronary artery of [place] heart without angina pectoris Take 1 tablet (81 mg) by mouth daily 4 Active ezetimibe (ZETIA) 10 MG tabletIndications :Coronary artery disease involving [place] coronary artery of [place] heart without angina pectoris Take 1 tablet (10 mg) by mouth daily. 90 tablet 3 5 Active Active Problems Problem Noted Date Diagnosed Date Chronic renal failure, stage 3b 11/05/2024 Benign essential hypertension 09/13/2022 Unstable angina 08/26/2022 ACP (advance care planning) 07/20/2017 Cough 03/27/2015 Transient hyperglycemia post procedure 5 Anemia due to blood loss, acute 03/19/2015 Fluid overload 03/19/2015 S/P CABG x 4 03/10/2015 Syncope 01/21/2015 STEMI (ST elevation myocardial infarction) 11/28 Overview (01/08/2015): inferior [place] Nov 2014 Coronary artery disease invo lving [place] coronary artery of [place] heart without angina pectoris 11/28/2014 Overview (06/16/2015): 03/10/2015 - CABG x4 with RUANO to LAD, rev SVG in Y configurations to 1st and 2nd diagonal and rev SVG to PDA 11/2014 - aspiration thrombectomy and THAI to RCA Ischemic cardiomyopathy 11/28/2014 NSVT (nonsustained ventricular tachycardia) Overview (12/10/2014): 11-28-14 admit, runs of NSVT Dyslipidemia Encounters Date Type Department Care Team Description 11/14/2024 Telephone [facility] [address] [facility] [address] [place] [phone] Johnnie Forbes MD Medication Request (ezetimibe (ZETIA) 10 MG tablet) 11/05/2024 12:30 PM HEARING AID REPAIRER Office Visit [facility] [address] [facility] [address] [place] [phone] Johnnie Forbes MD Coronary artery disease involving [place] coronary artery of [place] heart without angina pectoris (Primary Dx); Ischemic cardiomyopathy; NSVT (nonsustained ventricular tachycardia) (H); Dyslipidemia; Benign essential hypertension; Chronic renal failure, stage 3b (H) 11/05/2024 Telephone [facility] [address] [facility] [address] [place] [phone] Sheeba Jimenez RN 11/04/2024 12:00 PM HEARING AID REPAIRER Lab [facility] [address] [facility] [address] [place] [phone] Coronary artery disease involving [place] coronary artery of [place] heart without angina pectoris 11/04/2024 Travel from Last 3 Months Family History Medical [...] on file Legal 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 HEARING AID REPAIRER Gender Identity Not on file Sexual Orientation Not on file Last Filed Vital Signs Vital Sign Reading Time Taken Comments Blood Pressure 140/87 11/05/2024 12:32 PM HEARING AID REPAIRER Pulse 81 11/05/2024 12:32 PM HEARING AID REPAIRER Temperature 36.3 C (97.3 F) 08/30/2022 8:18 AM HEARING AID REPAIRER Respiratory Rate 16 08/30/2022 8:18 AM HEARING AID REPAIRER Oxygen Saturation 98% 11/15/2023 10:25 AM HEARING AID REPAIRER Inhaled Oxygen Concentration - - Weight 73.5 kg (162 lb) 11/05/2024 12:32 PM HEARING AID REPAIRER Height 160 cm (5' 3) 11/05/2024 12:32 PM HEARING AID REPAIRER Body Mass Index 28.7 11/05/2024 12:32 PM HEARING AID REPAIRER Plan of Treatment Health Maintenance Due Date Last Done Comments ADVANCE CARE PLANNING 1950 ANNUAL REVIEW OF HM ORDERS 1948 MICROALBUMIN 1948 PARATHYROID 1948 HEPATITIS C SCREENING 1966 Pneumococcal Vaccine: 50+ Years (1 of 2 - PCV) 1967 DTAP/TDAP/TD IMMUNIZATION (1 - Tdap) 1973 ZOSTER IMMUNIZATION (1 of 2) 1998 FALL RISK ASSESSMENT 2013 RSV VACCINE (1 - 1-dose 75+ series) 2023 COVID-19 Vaccine ( - season) 2024 INFLUENZA VACCINE (#1) 2024 PHQ-2 (once per calendar year) 2024 11/15/2023, 05/05/2023 HEMOGLOBIN 10/11/2024 10/11/2023, 08/03, 08/29/2022, Additional history exists BMP 11/14/2024 11/14/2023, 10/02, 08/30/2022, Additional history exists LIPID 11/14/2024 11/14/2023, 06/02, 05/04/2023, Additional history exists MEDICARE ANNUAL WELLNESS VISIT 10/09/2025 10/09/2024, 09/21/2023, 03/03/2022, Additional history exists DIABETES SCREENING 11/14/2026 11/14/2023, 1 10/30/2021, 08/29/2022, Additional history exists DEXA 10/10/2039 10/10/2024, 08/29/2017 COLORECTAL CANCER SCREENING Discontinued FIT Discontinued 12/16/2014 PHOSPHORUS Completed 03/11/2015 MAMMO SCREENING Discontinued 06/19/2019 URINALYSIS Completed 08/14/2021, 09/02, 10/06/2016, Additional history exists ALK PHOS Completed 10/11/2023, 08/03, 08/24/2022, Additional history exists COLONOSCOPY Discontinued CT COLONOGRAPHY Discontinued FLEX SIG Discontinued HPV IMMUNIZATION Aged Out No longer e ligible based on patient's age to complete this topic MENINGITIS IMMUNIZATION Aged Out No l onger eligible based on patient's age to complete this topic sDNA (Cologuard) Discontinued Medical Devices Implanted Type Area Fruit Stuffer Device Identifier Shelf Expiration Date Model / Serial / Lot Stent Resolute Shirley De 2.7fr [id number] Ronyx [id number] - [id number] Implanted:Qty: 1 on 08/29/2022 at [facility] Stent Drug Eluting (THAI) [employer] 05/24/2024 [id number] / / [id number] Imp Clip Horiz Multi Sm Yellow Implanted:Qty: 2 on 03/10/2015 by Yoshi Jimenez MD at [facility] [employer] [id number] / / Procedures Procedure Name Priority Date/Time Associated Diagnosis Comments ALT Routine 11/04/2024 1:16 PM HEARING AID REPAIRER Coronary artery disease involving [place] coronary artery of [place] heart without angina pectoris LIPID PROFILE Routine 11/14/2023 10:14 AM HEARING AID REPAIRER Coronary artery disease involving [place] coronary artery of [place] heart without angina pectoris BASIC METABOLIC PANEL Routine 11/14/2023 10:14 AM HEARING AID REPAIRER Coronary artery disease involving [place] coronary artery of [place] heart without angina pectoris Ischemic cardiomyopathy Benign essential hypertension HEPATIC FUNCTION PANEL Routine 10/11/2023 12:15 AM HEARING AID REPAIRER CBC WITH PLATELETS & DIFFERENTIAL Routine 10/11/2023 12:15 AM HEARING AID REPAIRER ROUTINE UA WITH MICROSCOPIC REFLEX TO CULTURE STAT 08/14/2021 3:47 PM HEARING AID REPAIRER PHOSPHORUS Routine 03/11/2015 4:00 AM CDT OCCULT BLOOD STOOL STAT 12/16/2014 1: 35 AM CDT Syncope from Last 3 Months or Most Recently Relevant to Health Maintenance Results * ALT (11/04/2024 1:16 PM HEARING AID REPAIRER) ALT 34 0 - 50 U/L 11/04/2024 1:5 9 PM HEARING AID REPAIRER [facility] Blood STRUCTURE OF LEFT UPPER LIMB / Unknown Venipuncture / Unknown 11/04/2024 1:16 PM HEARING AID REPAIRER 11/04/2024 1:16 PM HEARING AID REPAIRER us Johnnie Forbes MD LAB - BLOOD ORDERABLES Fin al Result [facility] [address] Lab (1st floor, no room number) [place] [address] * Lipid Profile (11/14/2023 10:14 AM HEARING AID REPAIRER) Cholesterol 149 <200 mg/dL 11/14/2023 2:13 PM HEARING AID REPAIRER [facility] Triglycerides 104 <150 mg/dL 11/14/2023 2:13 PM HEARING AID REPAIRER [facility] Direct Measure HDL 57 >=50 mg/dL 2023 2:13 PM HEARING AID REPAIRER [facility] LDL Cholesterol Calculated 71 <=100 mg/dL 11/14/2023 2:13 PM HEARING AID REPAIRER [facility] Non HDL Cholesterol 92 <130 mg/dL 11/14/2023 2:13 PM HEARING AID REPAIRER [facility] Patient Fasting > 8hrs? Yes 11/14/2023 2:13 PM HEARING AID REPAIRER LABORATORY Blood STRUCTURE OF LEFT UPPER LIMB / Unknown Venipuncture / Unknown 11/14/2023 10:14 AM HEARING AID REPAIRER 11/14/2023 10:14 AM HEARING AID REPAIRER Narrative [facility] - 11/14/2023 2:13 PM HEARING AID REPAIRER Cholesterol Desirable: <200 mg/dL Triglycerides Normal: Less than 150 mg/dL Borderline High: 150-199 mg/dL High: 200-499 mg/dL Very High: Greater than or equal to 500 mg/dL Direct Measure HDL Female: Greater than or equal to 50 mg/dL Male: Greater than or equal to 40 mg/dL LDL Cholesterol Desirable: <100mg/dL Above Desirable: 100-129 mg/dL Borderline High: 130-159 mg/dL High: 160-189 mg/dL Very High: >= 190 mg/dL Non HDL Cholesterol Desirable: 130 mg/dL Above Desirable: 130-159 mg/dL Borderline High: 160-189 mg/dL High: 190-219 mg/dL Very High: Greater than or equal to 220 mg/dL us Johnnie Forbes MD LAB - BLOOD ORDERABLES Fin al Result [facility] [address] [facility], [address] [place] [address], [place] [phone] LABORATORY [facility] [address] Lab (1st floor, no room number) [place] [address], [place] [phone] * (ABNORMAL) Basic metabolic panel (11/14/2023 10:14 AM [facility]) [facility] Sodium 142 135 - 145 mmol/L 11/14/2023 11:26 AM [facility] Comment:Reference intervals for this test were updated on 06/27/2023 to more accurately reflect our healthy population. There may be differences in the flagging of prior results with similar values performed with this method. Interpretation of those prior results can be made in the context of the updated reference intervals. Potassium 4.0 3.4 - 5.3 mmol/L 11/14/2023 11:26 AM [facility] Chloride 105 98 - 107 mmol/L 11/14/2023 11:26 AM [facility] Carbon Dioxide (CO2) 23 22 - 29 mmol/L 11/14/2023 11:26 AM [facility] Anion Gap 14 7 - 15 mmol/L 11/14/2023 11:26 AM [facility] Urea Nitrogen 24.5(H) 8.0 - 23.0 mg/dL 11/14/2023 11:26 AM [facility] Creatinine 1.23(H) 0.51 - 0.95 mg/dL 11/14/2023 11:26 AM [facility] GFR Estimate 46(L) >60 mL/min/1. 73m2 11/14/2023 11:26 AM [facility] Calcium 9.9 8.8 - 10.2 mg/dL 11/14/2023 11:26 AM [facility] Glucose 105(H) 70 - 99 mg/dL 11/14/2023 11:26 AM HEARING AID REPAIRER LABORATORY Blood STRUCTURE OF LEFT UPPER LIMB / Unknown Venipuncture / Unknown 11/14/2023 10:14 AM HEARING AID REPAIRER 11/14/2023 10:14 AM HEARING AID REPAIRER Johnnie Forbes MD LAB - BLOOD ORDERABLES Fin al Result LABORATORY [facility] [address] [facility] Lab (1st floor, no room number) [place] [address], [facility] [phone] * (ABNORMAL) CBC with Platelets & Differential (10/11/2023 12:15 AM HEARING AID REPAIRER) WBC Count (External) 7.00 4.50 - 11.00 K/UL NON-INTERFACE D (ONBASE SCANS) RBC Count (External) 5.67(H) 4.00 - 5.20 m/uL NON-INTERFACE D (ONBASE SCANS) Hemoglobin (External) 14.7 12.0 - 16.0 gm/dl NON-INTERFACE D (ONBASE SCANS) Hematocrit (External) 47.4 33.0 - 51.0 % NON-INTERFACE D (ONBASE SCANS) MCV (External) 84 80 - 100 fL NON-INTERFACE D (ONBASE SCANS) MCH (External) 26 26 - 34 pg NON- INTERFACE D (ONBASE SCANS) MCHC (External) 31(L) 32 - 36 gm/dl NON-INTERFACE D (ONBASE SCANS) Platelet Count (External) 178 140 - 440 K/uL NON-INTERFACE D (ONBASE SCANS) RDW (External) 13.8 11.5 - 15.5 % NON-INTERFACE D (ONBASE SCANS) % Neutrophils (External) 69.7 42.0 - 72.0 % NON-INTERFACE D (ONBASE SCANS) % Lymphocytes (External) 22.3 20 - 44 % NON-INTERFACE D (ONBASE SCANS) % Monocytes (External) 6.7 0.0 - 11.0 % NON-INTERFACE D (ONBASE SCANS) % Eosinophils (External) 0.7 0.0 - 7.0 % NON-INTERFACE D (ONBASE SCANS) % Basophils (External) 0.3 0.0 - 3.0 % NON-INTERFACE D (ONBASE SCANS) % Immature Granulocytes (External) 0.3 % NON-INTERFACE D (ONBASE SCANS) Absolute Neutrophils (External) 4.88 1.7 - 7.0 k/uL NON-INTERFACE D (ONBASE SCANS) Absolute Lymphocytes (External) 1.56 0.90 - 2.90 k/uL NON-INTERFACE D (ONBASE SCANS) Absolute Monocytes (External) 0.50 0.00 - 0.90 k/uL NON-INTERFACE D (ONBASE SCANS) Absolute Eosinophils (External) 0.05 0.0 - 0.5 k/uL NON-INTERFACE D (ONBASE SCANS) Absolute Basophils (External) 0.2 0.0 - 0.3 k/uL NON-INTERFACE D (ONBASE SCANS) Absolute Immature Granulocytes (External) 0.02 0.00 - 0.30 k/uL NON-INTERFACE D (ONBASE SCANS) Blood BLOOD SPECIMEN / Unknown 10/11/2023 12:15 AM HEARING AID REPAIRER Narrative TOM PFT - 10/12/2023 9:13 AM HEARING AID REPAIRER Verified by Chris Raines on 10/12/2023. us Provider Outside LAB - BLOOD ORDERABLES Edited R esult - Final TOMASMADHU MANNIE NON-INTERFACED (ONBASE SCANS) * Hepatic function panel (10/11/2023 12:15 AM HEARING AID REPAIRER) Protein Total (External) 7.7 6.0 - 8.3 g/dL NON-INTERFACED (ONBASE SCANS) Albumin (External) 4.9 3.3 - 5.0 g/dL NON-INTERFACED (ONBASE SCANS) Bilirubin Total (External) 0.5 0.1 - 1.5 mg/dl NON-INTERFACED (ONBASE SCANS) AST (External) 34 12 - 35 U/L NON-INTERFACED (ONBASE SCANS) ALT (External) 24 4 - 35 U/L NON- INTERFACED (ONBASE SCANS) Alk Phosphatase (External) 66 40 - 150 U/L NON-INTERFACED (ONBASE SCANS) Blood BLOOD SPECIMEN / Unknown 10/11/2023 12:15 AM HEARING AID REPAIRER Narrative TOM PFT - 10/12/2023 9:13 AM HEARING AID REPAIRER Verified by Chris Raines on 10/12/2023. us Provider Outside LAB - BLOOD ORDERABLES Edited R esult - Final TOM PFT NON-INTERFACED (ONBASE SCANS) * (ABNORMAL) UA with Microscopic reflex to Culture (08/14/2021 3:47 PM HEARING AID REPAIRER) Color Urine Yellow Colorless, Straw, Light Yellow, Yellow 08/14/2021 4:18 PM HEARING AID REPAIRER [facility] Appearance Urine Clear Clear 08/14/20 4:18 PM HEARING AID REPAIRER [facility] Glucose Urine Negative Negative mg/dL 08/14/2021 4:18 PM HEARING AID REPAIRER [facility] Bilirubin Urine Negative Negative 4:18 PM HEARING AID REPAIRER [facility] Ketones Urine Negative Negative mg/dL 08/14/2021 4:18 PM HEARING AID REPAIRER [facility] Specific [place] Urine 1.028 1.003 - 1.035 08/14/2021 4:18 PM HEARING AID REPAIRER [facility] Blood Urine Negative Negative 08/14/2021 4:18 PM HEARING AID REPAIRER [facility] pH Urine 6.0 5.0 - 7.0 08/14/2021 4:18 PM HEARING AID REPAIRER [facility] Protein Albumin Urine 30(A) Negative mg/dL 08/14/2021 4:18 PM HEARING AID REPAIRER [facility] Urobilinogen Urine Normal Normal, 2.0 mg/dL 08/14/2021 4:18 PM HEARING AID REPAIRER [facility] Nitrite Urine Negative Negative 08/14/2021 4:18 PM HEARING AID REPAIRER [facility] Leukocyte Esterase Urine Moderate(A) Negative 08/14/2021 4:18 PM HEARING AID REPAIRER [facility] Bacteria Urine Few(A) None Seen /HPF 08/14/2021 4:18 PM HEARING AID REPAIRER [facility] Mucus Urine Present(A) None Seen /LPF 08/14/2021 4:18 PM HEARING AID REPAIRER [facility] RBC Urine 1 <=2 /HPF 08/14/2021 4:18 PM HEARING AID REPAIRER [facility] WBC Urine 5 <=5 /HPF 08/14/2021 4:18 PM HEARING AID REPAIRER [facility] Squamous Epithelials Urine 7(H) <=1 /HPF 08/14/2021 4:18 PM HEARING AID REPAIRER [facility] Hyaline Casts Urine 12(H) <=2 /LPF 08/14/2021 4:18 PM HEARING AID REPAIRER LABORATORY Urine URINE SPECIMEN OBTAINED BY CLEAN CATCH PROCEDURE / Unknown Non-blood Collection / Unknown 08/14/2021 3:47 PM HEARING AID REPAIRER 08/14/2021 4:06 PM HEARING AID REPAIRER Narrative LABORATORY - 08/14/2021 4:18 PM HEARING AID REPAIRER Urine Culture ordered based on laboratory criteria us Gulshan Whitfield MD LAB - URINE ORDERABLES Fi nal Result LABORATORY [facility] [address] Lab (1st floor, no room number) [place] [address], [facility] [phone] * Phosphorus (03/11/2015 4:00 AM CDT) Phosphorus 2.7 2.5 - 4.5 mg/dL [facility] Blood specimen (specimen) 03/11/2015 4:00 AM CDT 03/11/2015 4:10 AM CDT us Yoshi Jimenez MD LAB - BLOOD ORDERABLES Final Result Performing Organization Address [facility] Co de Phone Number [facility] [address] [place] [address], [facility] [phone] * (ABNORMAL) Stool: occult blood (12/16/2014 1:35 AM CDT) Occult Blood Positive(A ) NEG [facility] Stool specimen (specimen) 12/16/2014 1:35 AM CDT 12/16/2014 2:20 AM CDT us Randal Benson MD LAB - STOOLS ORDERABLE S Final Result Performing Organization Address [facility]/ZIP Co de Phone Number [facility] [address] [place] [address] from Last 3 Months or Most Recently Relevant to Health Maintenance Insurance [facility] MEDICARE [employer] MEDICARE Advance Directives For more information, please contact: [phone] * Full Code (Latest Code Status on File) Date Activated Date Inactivated Comments 08/27/2022 5:41 PM 08/30/2022 4:13 PM All basic and advanced life-sustaining interventions are performed as appropriate Question Answer Comments Code status determined by: Discussion with patie nt/ legal decision maker * Full Code Date Activated Date Inactivated Comments 08/23/2022 7:46 PM 08/24/2022 11:16 PM All basic and advanced life-sustaining interventions are performed as appropriate Question Answer Comments Code status determined by: Discussion with patie nt/ legal decision maker * Full Code Date Activated Date Inactivated Comments 03/16/2015 8:13 AM 09/22/2018 8:09 PM * Full Code Date Activated Date Inactivated Comments 03/10/2015 3:45 PM 03/16/2015 8:13 AM * Full Code Date Activated Date Inactivated Comments 03/02/2015 8:54 PM 03/10/2015 3:45 PM Care Teams Two Way Radio Installer Relationship Specialty Start Date End Date Marcelina Devine MD [facility] [address] [place] [address] PCP - General Family Practice 12/05/14 Johnnie Forbes MD [address] [place] [id number] Cardiovascular Disease 03/02/23 Johnnie Forbes MD [address] [place] [id number] Assigned Heart and Vascular Provider 05/06/23
--- OUTSIDE RECORDS SUMMARY | 2025-01-05 11:30 | XMS_ITS | Encounter Summary ---
Author Organization [place] Address [address] [place] [address]. [place] [address] Care Team Providers Care Living Specialist Name Role Phone Marcelina Devine MD Primary Care Provider + Johnnie Forbes MD Unavailable [phone] Johnnie Forbes MD Unavailable [phone] Encounter Details Date Type Department Care Team (Late st Contact Info) Description 06/20/2023 [facility] [place] [facility] Advice [facility] [address] [place] [address] Sheeba Jimenez, RN Social History Tobacco Use Types Packs/Day Years Used Date Smoking Tobacco: Never Smokeless Tobacco: Never Alcohol Use Standard Drinks/Week Comments No 0 (1 standard drink = 0.6 oz pur e alcohol) PHQ-2 Answer Date Recorded PHQ-2 Score 0 05/05/2023 Comments No Sex and Gender Information Value Date Recorded Sex Assigned at Not on file Legal 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 SHIP JOINER Gender Identity Not on file Sexual Orientation [...] on filedocumented in this encounter Care Teams Living Specialist Relationship Specialty Start Date End Date Marcelina Devine MD [facility] [id number] [place] [address] PCP - General Family Practice 12/05/14 Johnnie Forbes MD [address] [place] [id number] Cardiovascular Disease 03/02/23 Johnnie Forbes MD [address] [place] [id number] Assigned Heart and Vascular Provider 05/06/23 documented as of this encounter
--- OUTSIDE RECORDS SUMMARY | 2025-01-05 11:30 | XMS_ITS | Encounter Summary ---
Author Organization [place] Address [facility] [place] [address] Care Team Providers Care Integrated Marketing Manager Name Role Phone Marcelina Devine MD Primary Care Provider + Johnnie Forbes MD Unavailable [phone] Johnnie Forbes MD Unavailable [phone] Encounter Details Date Type Department Care Team (Late st Contact Info) Description 01/12/2024 [facility] [place] [facility] [address] [place] [address] Lorna Waldrop LPN Social History Tobacco Use Types Packs/Day [...] on file Legal 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 YARD GENERAL CAR SUPERVISOR Gender Identity Not on file Sexual Orientation Not on file documented as of this encounter Plan of Treatment Not on file documented as of this encounter Visit Diagnoses Not on filedocumented in this encounter Care Teams Integrated Marketing Manager Relationship Specialty Start Date End Date Marcelina Devine MD [facility] [address] [place] [address] PCP - General Family Practice 12/05/14 Johnnie Forbes MD [address] [place] [address] Cardiovascular Disease 03/02/23 Johnnie Forbes MD [address] [place] [address] Assigned Heart and Vascular Provider 05/06/23 documented as of this encounter
--- OUTSIDE RECORDS SUMMARY | 2025-01-05 11:30 | XMS_ITS | Encounter Summary ---
Author Organization [facility] Address [address] [place] [address]. [place] [address] Care Team Providers Care Mud Engineer Name Role Phone Marcelina Devine MD Primary Care Provider + Dianne Coello APRN BRASS MOLDER Unavailable [phone] Johnnie Forbes MD Unavailable [phone] Johnnie Forbes MD Unavailable [phone] Encounter Details Date Type Department Care Team (Late st Contact Info) Description 08/14/2021 Documentation Only INTERFACED REPORT Unknown, Provider Social History Tobacco Use Types Packs/Day Years Used Date Smoking Tobacco: Never Smokeless Tobacco: Never Alcohol Use Standard Drinks/Week Comments No 0 (1 standard drink = 0.6 oz pur e alcohol) Comments No Sex and Gender Information Value Date Recorded Sex Assigned at Not on file 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 No / Unsure 08/14/2021 2:27 PM BACK HOE MACHINE OPERATOR documented as of this encounter Plan of Treatment Not on file documented as of this encounter Visit Diagnoses Not on filedocumented in this encounter Additional Health Concerns Infection Onset Date Last Indicated Resolved Time COVID-19 08/26/2022 08/26/2022 09/16/2022 11:3 9 PM BACK HOE MACHINE OPERATOR documented as of this encounter Care Teams Mud Engineer Relationship Specialty Start Date End Date Marcelina Devine MD [facility] [address] [facility] [address] PCP - General Family Practice 12/05/14 Dianne Coello APRN BRASS MOLDER [address] [place] [id number] Assigned Heart and Vascular Provider 09/17/22 05/05/23 Johnnie Forbes MD [address] [place] [id number] Cardiovascular Disease 03/02/23 Johnnie Forbes MD [address] [place] [id number] Assigned Heart and Vascular Provider 05/06/23 documented as of this encounter
--- OUTSIDE RECORDS SUMMARY | 2025-01-05 11:30 | XMS_ITS | Encounter Summary ---
Author Organization [facility] Address [facility] 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 Gender Identity Not on file Sexual Orientation Not on file documented as of this encounter Plan of Treatment Not on file documented as of this encounter Visit Diagnoses Not on filedocumented in this encounter Care Teams Drainlayer Relationship Specialty Start Date End Date Marcelina Devine MD [facility] [address] [place] [address] PCP - General Family Practice 12/05/14 Johnnie Forbes MD [address] [place] [address] Cardiovascular Disease 03/02/23 Johnnie Forbes MD [address] [place] [id number] Assigned Heart and Vascular Provider 05/06/23 documented as of this encounter
--- OUTSIDE RECORDS SUMMARY | 2025-01-05 11:30 | XMS_ITS | Encounter Summary ---
Author Organization [facility] Address [address] [place] [address]. [place] [address] Care Team Providers Care Home Energy Consultant Name Role Phone Marcelina Devine MD Primary Care Provider + Johnnie Forbes MD Unavailable [phone] Johnnie Forbes MD Unavailable [phone] Encounter Details Date Type Department Care Team (Late st Contact Info) Description 10/11/2023 External Order Results [facility] [address] [place] [address] Outside, Provider Social History Tobacco Use Types Packs/Day [...] on file Legal 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 COMIC ILLUSTRATOR Gender Identity Not on file Sexual Orientation Not on file documented as of this encounter Plan of Treatment Not on file documented as of this encounter Procedures Procedure Name Priority Date/Time Associated Diagnosis Comments EXTERNAL LAB RESULTS Routine 10/11/2023 2:16 AM COMIC ILLUSTRATOR INFLUENZA A/B, RSV AND SARS-COV2 PCR Routine 10/11/2023 1:20 AM COMIC ILLUSTRATOR EXTERNAL LAB RESULTS Routine 10/11/2023 12:20 AM COMIC ILLUSTRATOR CBC WITH PLATELETS & DIFFERENTIAL Routine 10/11/2023 12:15 AM COMIC ILLUSTRATOR VITAMIN D DEFICIENCY SCREENING Routine 10/11/2023 12:15 AM COMIC ILLUSTRATOR TSH Routine 10/11/2023 12:15 AM COMIC ILLUSTRATOR T4 FREE Routine 10/11/2023 12:15 AM COMIC ILLUSTRATOR N TERMINAL PRO BNP OUTPATIENT Routine 10/11/2023 12:15 AM COMIC ILLUSTRATOR MAGNESIUM Routine 10/11/2023 12:15 AM COMIC ILLUSTRATOR HEPATIC FUNCTION PANEL Routine 10/11/2023 12:15 AM COMIC ILLUSTRATOR CREATININE Routine 10/11/2023 12:15 AM COMIC ILLUSTRATOR BASIC METABOLIC PANEL Routine 10/11/2023 12:15 AM COMIC ILLUSTRATOR documented in this encounter Results * External Lab Results (10/11/2023 2:16 AM COMIC ILLUSTRATOR) Pathologist [facility] Scan Lab Results (External) See Scanned Report NON-INTERFACE D (ONBASE SCANS) Comment:TROP POC 10/11/2023 2:16 AM COMIC ILLUSTRATOR Narrative TMO CHAND - 10/12/2023 9:13 AM COMIC ILLUSTRATOR Verified by Chris Raines on 10/12/2023. us Provider Outside LABORATORY Edited Result - Final TOM PFLeda NON-INTERFACED (ONBASE SCANS) * Influenza A/B, RSV, & SARS-CoV2 PCR (COVID-19) (10/11/2023 1:20 AM COMIC ILLUSTRATOR) Pathologist [facility] COVID-19 Virus by PCR (External Result) Negative Negative NON-INTERFACE D (ONBASE SCANS) Influenza A (External) Negative Negative NON-INTERFACE D (ONBASE SCANS) Influenza B (External) Negative Negative NON-INTERFACE D (ONBASE SCANS) Respiratory Syncytial Virus (External) Negative Negative NON-INTERFACE D (ONBASE SCANS) Swab 10/11/2023 1:20 AM COMIC ILLUSTRATOR Narrative BREE[facility] PFT - 10/12/2023 9:13 AM COMIC ILLUSTRATOR Verified by Chris Raines on 10/12/2023. us Provider Outside LAB - MICRO GENERAL ORDERABLES Edited Result - Final Performing Organization Address City/[facility]/ZIP Co de Phone Number TOMASEZE PFT NON-INTERFACED (ONBASE SCANS) * External Lab Results (10/11/2023 12:20 AM COMIC ILLUSTRATOR) Scan Lab Results (External) See Scanned Report NON-INTERFACE D (ONBASE SCANS) Comment:TROP POC 10/11/2023 12:2 0 AM COMIC ILLUSTRATOR Narrative B[facility]ZE PFT - 10/12/2023 9:13 AM COMIC ILLUSTRATOR Verified by Chris Raines on 10/12/2023. us Provider Outside LABORATORY Edited Result - Final Performing Organization Address [facility] de Phone Number BREEZE PFT NON-INTERFACED (ONBASE SCANS) * (ABNORMAL) CBC with Platelets & Differential (10/11/2023 12:15 AM COMIC ILLUSTRATOR) WBC Count (External) 7.00 4.50 - 11.00 [...] BLOOD SPECIMEN / Unknown 10/11/2023 12:15 AM COMIC ILLUSTRATOR Narrative TOM DEGROOTT - 10/12/2023 9:13 AM COMIC ILLUSTRATOR Verified by Chris Raines on 10/12/2023. us Provider Outside LAB - BLOOD ORDERABLES Edited R esult - Final TOM PFLeda NON-INTERFACED (ONBASE SCANS) * (ABNORMAL) Basic metabolic panel (10/11/2023 12:15 AM COMIC ILLUSTRATOR) Pathologist [facility] Sodium (External) 142 135 - 149 mmol/L NON-INTERFACED (ONBASE SCANS) Potassium (External) 3.9 3.6 - 5.1 mmol/L NON-INTERFACED (ONBASE SCANS) Chloride (External) 108 96 - 114 mmol/L NON-INTERFACED (ONBASE SCANS) CO2 (External) 22 20 - 32 mmol/L NON-INTERFACED (ONBASE SCANS) Anion Gap (External) 12 7 - 15 mcg/L NON-INTERFACED (ONBASE SCANS) Urea Nitrogen (External) 26 7 - 30 mg/dl NON-INTERFACED (ONBASE SCANS) Creatinine (External) 0.9 0.5 - 1.5 mg/dl NON-INTERFACED (ONBASE SCANS) GFR Estimated (External) 67 ml/min NON-INTERFACED (ONBASE SCANS) Calcium (External) 10.0 8.4 - 10.6 mg/dl NON-INTERFACED (ONBASE SCANS) Glucose (External) 127(H) 60 - 115 mg/dl NON-INTERFACED (ONBASE SCANS) Blood BLOOD SPECIMEN / Unknown 10/11/2023 12:15 AM COMIC ILLUSTRATOR Narrative TOM PFT - 10/12/2023 9:13 AM COMIC ILLUSTRATOR Verified by Chris Raines on 10/12/2023. us Provider Outside LAB - BLOOD ORDERABLES Edited R esult - Final TOM PFLeda NON-INTERFACED (ONBASE SCANS) * Hepatic function panel (10/11/2023 12:15 AM COMIC ILLUSTRATOR) Pathologist [facility] Protein Total (External) 7.7 6.0 - 8.3 [...] BLOOD SPECIMEN / Unknown 10/11/2023 12:15 AM COMIC ILLUSTRATOR Narrative [facility] PFT - 10/12/2023 9:13 AM COMIC ILLUSTRATOR Verified by Chris Raines on 10/12/2023. Provider Outside LAB - BLOOD ORDERABLES Edited R iWarda - [employer] BREEZE PFT NON-INTERFACED (ONBASE SCANS) * N terminal pro BNP outpatient (10/11/2023 12:15 AM COMIC ILLUSTRATOR) N-Terminal Pro BNP (External) 526 See scan pg/mL NON-INTERFACED (ONBASE SCANS) Blood BLOOD SPECIMEN / Unknown 10/11/2023 12:15 AM COMIC ILLUSTRATOR Narrative [facility] PFT - 10/12/2023 9:13 AM COMIC ILLUSTRATOR Verified by Chris Raines on 10/12/2023. Provider Outside LAB - BLOOD ORDERABLES Edited [employer] Performing Organization Address [facility] Co de Phone Number BREEZE PFT NON-INTERFACED (ONBASE SCANS) * Magnesium (10/11/2023 12:15 AM COMIC ILLUSTRATOR) Magnesium (External) 2.4 1.5 - 2.6 mg/dl NON-INTERFACED (ONBASE SCANS) Blood BLOOD SPECIMEN / Unknown 10/11/2023 12:15 AM COMIC ILLUSTRATOR Narrative [facility] PFT - 10/12/2023 9:13 AM COMIC ILLUSTRATOR Verified by Chris Raines on 10/12/2023. Provider Outside LAB - BLOOD ORDERABLES Edited R [employer] [facility] PFT NON-INTERFACED (ONBASE SCANS) * TSH (10/11/2023 12:15 AM COMIC ILLUSTRATOR) TSH (External) 2.650 0.270 - 4.2 uIU/mL NON-INTERFACED (ONBASE SCANS) Blood BLOOD SPECIMEN / Unknown 10/11/2023 12:15 AM COMIC ILLUSTRATOR Narrative [facility] PFT - 10/12/2023 9:13 AM COMIC ILLUSTRATOR Verified by Chris Raines on 10/12/2023. Provider Outside LAB - BLOOD ORDERABLES Edited R [employer] - [employer] BREEZE PFT NON-INTERFACED (ONBASE SCANS) * T4 free (10/11/2023 12:15 AM COMIC ILLUSTRATOR) Thyroxine Free (External) 0.93 0.70 - 1.85 ng/dL NON-INTERFACED (ONBASE SCANS) Blood BLOOD SPECIMEN / Unknown 10/11/2023 12:15 AM COMIC ILLUSTRATOR Narrative B[facility]ZE PFT - 10/12/2023 9:13 AM COMIC ILLUSTRATOR Verified by Chris Raines on 10/12/2023. Provider Outside LAB - BLOOD ORDERABLES Edited [employer] Performing Organization Address [facility]/ZIP Co de Phone Number BREEZE PFT NON-INTERFACED (ONBASE SCANS) * Vitamin D Deficiency (10/11/2023 12:15 AM COMIC ILLUSTRATOR) Vitamin D Deficiency Screening (External) 47 30 - 80 ng/ml NON-INTERFACED (ONBASE SCANS) Blood BLOOD SPECIMEN / Unknown 10/11/2023 12:15 AM COMIC ILLUSTRATOR Narrative [facility] PFT - 10/12/2023 9:13 AM COMIC ILLUSTRATOR Verified by Chris Raines on 10/12/2023. Provider Outside LAB - BLOOD ORDERABLES Edited R [employer] BREEZE PFT NON-INTERFACED (ONBASE SCANS) * Creatinine (10/11/2023 12:15 AM COMIC ILLUSTRATOR) Creatinine (External) 0.9 0.5 - 1.5 mg/dL NON-INTERFACED (ONBASE SCANS) Blood BLOOD SPECIMEN / Unknown 10/11/2023 12:15 AM COMIC ILLUSTRATOR Narrative TOM PFT - 10/12/2023 9:13 AM COMIC ILLUSTRATOR Verified by Chris Rianes on 10/12/2023. us Provider Outside LAB - BLOOD ORDERABLES Edited R esult - Final TOM PFLeda NON-INTERFACED (ONBASE SCANS) documented in this encounter Visit Diagnoses Not on filedocumented in this encounter Care Teams Home Energy Consultant Relationship Specialty Start Date End Date Marcelina Devine MD [facility] [id number] [place] [id number] PCP - General Family Practice 12/05/14 Johnnie Forbes MD [address] [place] [id number] Cardiovascular Disease 03/02/23 Johnnie Forbes MD [address] [place] [id number] Assigned Heart and Vascular Provider 05/06/23 documented as of this encounter
[2025-01-05 11:37] LABS: Basophils Absolute Auto 0.02 K/uL (0.00-0.30); Basophils Percent Auto 0.3 % (0.0-3.0); Eosinophils Absolute Auto 0.02 K/uL (0.00-0.50); Eosinophils Percent Auto 0.3 % (0.0-7.0); Hematocrit 45.7 % (33.0-51.0); Hemoglobin* 14.4 gm/dL (12.0-16.0); Immature Granulocytes Abs Auto 0.01 K/uL (0.00-0.30); Immature Granulocytes Pct Auto 0.2 %; Lymphocytes Percent Auto 14.8 % (20-44); Mean Corpuscular HGB Conc 32 gm/dL (32-36); Mean Corpuscular Hemoglobin 27 pg (26-34); Mean Corpuscular Volume 86 fL (80-100); Monocytes Percent Auto 5.6 % (0.0-11.0); Neutrophils Percent Auto 78.8 % (42.0-72.0); Platelet Count* 171 K/uL (140-440); RDW Coefficient of Variation % 13.7 % (11.5-15.5); Red Blood Count 5.33 m/uL (4.00-5.20); White Blood Count* 6.21 K/uL (4.50-11.00)
[2025-01-05 11:39] LABS: Slide Review Reflex No
[2025-01-05 12:04] LABS: Albumin* 4.8 g/dL (3.3-5.0); Chloride* 106 mmol/L (96-114)
[2025-01-05 12:05] LABS: Potassium* 4.2 mmol/L (3.6-5.1); Sodium* 140 mmol/L (135-149)
[2025-01-05 12:07] LABS: Blood Urea Nitrogen* 24 mg/dL (7-30); Est. Creatinine Clearance* 39.59; Estimated Glomerular Filt Rate 58 ml/min
[2025-01-05 12:08] LABS: Alanine Aminotransferase* 35 U/L (4-35); Alkaline Phosphatase* 62 U/L (40-150); Anion Gap 11 mEq/L (7-15); Aspartate Amino Transferase* 45 U/L (12-35); Bilirubin Direct* 0.2 mg/dL (0.0-0.5); Bilirubin Total* 0.8 mg/dL (0.1-1.5); Calcium* 10.1 mg/dL (8.4-10.6); Carbon Dioxide* 23 mmol/L (20-32); Glucose* 104 mg/dL (60-115); Total Protein* 7.1 g/dL (6.0-8.3)
[2025-01-05 12:16] LABS: C Reactive Protein* < 0.5 mg/dL (0.5-1.0)
[2025-01-05 12:20] LABS: Troponin I* < 0.01 ng/mL (0.01-0.04)
[2025-01-05 12:31] LABS: Appearance Urine Clear (Clear); Bilirubin Urine Negative (Negative); Blood Urine Negative (Negative); Color Urine Yellow (Yellow); Glucose Urine Negative (Negative); Ketones Urine Trace (Negative); Leukocyte Esterase Urine Negative (Negative); Nitrite Urine Negative (Negative); Protein Urine Negative (Negative); Specific Gravity Urine 1.015 (1.000-1.030); Urobilinogen Urine 0.2 (0.2-1.0); pH Urine 5.5 (5.0-8.5)
[2025-01-05 12:40] VITALS: BP 153/83; PULSE 67; RESP 16; O2SAT 94
[2025-01-05 12:52] LABS: Bacteria Urine Few; RBC Urine 0-2 (0-2); Squamous Epithelial Cell Urine Moderate (None-Few); WBC Urine 0-2 (0-5)
== END 2025-01-05 13:05 | disposition home or self-care (01) ==
PROVIDERS: Emergency Provider Family Medicine; PCP Family Medicine
DX: R51.9 Headache, unspecified (principal); R19.7 Diarrhea, unspecified; R53.1 Weakness
CPT/HCPCS: 36415; 80048; 80076; 81001; 84443; 84484; 85025; 86140; 87086; 93005; 99284